=== PATIENT | female | born 1945 | race Caucasian/White ===

== ENCOUNTER → 2016-11-28 | Outpatient (CLI) | payer BC ==
--- NOTE | 2016-12-03 09:13 | MM ---
Reason for exam: screening (asymptomatic). Last mammogram was performed 1 year ago. History: Patient is postmenopausal. Family history of breast cancer in paternal aunt. Benign right mammotome panel of the right breast, January 06, 2012. Cancelled Right Mammotome of the right breast, September 09, 2011. Took hormonal contraceptives for 20 years. Took estrogen for 7 years. Physical Findings: A clinical breast exam by your physician is recommended on an annual basis and results should be correlated with mammographic findings. MG Screening Mammo w CAD Bilateral CC and MLO view(s) were taken. Prior study comparison: December 13, 2015, bilateral MG screening mammo w CAD. October 27, 2014, bilateral MG screening mammo w CAD. There are scattered fibroglandular densities. Previous mammotome biopsy in the right breast. No significant changes when compared with prior studies. ASSESSMENT: Benign, BI-RAD 2 RECOMMENDATION: Routine screening mammogram of both breasts in 1 year.
== END | disposition home or self-care (01) ==
LOC: RADMAMWWP 16:09
PROVIDERS: ATTEND Family Medicine
DX: Z12.31 Encounter for screening mammogram for malignant neoplasm of breast (principal)

== ENCOUNTER 2017-01-19 21:36 | Observation (INO) | payer BC ==
[2017-01-19] MEDS ORDERED: SODIUM CHLORIDE 0.9% 500 ML IV STA (23:05)
--- NOTE | 2017-01-19 23:15 | ED ---
Abdominal Pain HPI - General Chief Complaint: Abdominal Pain Stated Complaint: Abd Pain Time Seen by Provider: 01/19/17 22:33 Source: patient Mode of arrival: ambulatory Limitations: no limitations - History of Present Illness Initial Comments: This patient is a 72-year-old woman who presents to be evaluated for bilateral upper abdominal pain. The pain came on probably just before noon. The patient notes that she had had a hard bowel movement. Over the next few hours she had multiple soft bowel movements then, without seeing blood or dark tarry stool. She states that the symptoms did become moderately severe, and did remind her of about 5 years ago when she had "twisted bowel" and she had to have an abdominal surgery here. The patient has had no fevers or chills, no nausea or vomiting, no change in urination. She has not had any radiation of the pain into her chest, no cough or shortness of breath. MD Complaint: abdominal pain Onset/Timin -: hour(s) Location: LUQ, RUQ Radiation: none Migration to: no migration Severity: moderate Quality: aching Consistency: intermittent Improves With: rest Worsens With: movement Associated Symptoms: diarrhea - Related Data Home Medications Medication Instructions Recorded Confirmed Baclofen [Lioresal] 10 mg PO HS 07/12/14 01/19/17 Losartan Potassium [Cozaar] 50 mg PO BID 07/12/14 01/19/17 Omeprazole [PriLOSEC] 20 mg PO DAILY 07/12/14 01/19/17 Acetaminophen [Tylenol Arthritis] 650 mg PO BID 01/19/17 01/19/17 Calcium Carb/Vitamin D3/Vit K1 1 tab PO DAILY 01/19/17 01/19/17 [Viactiv Soft Chew Tablet] Ezetimibe [Zetia] 10 mg PO HS 01/19/17 01/19/17 Krill Oil 500 mg PO DAILY 01/19/17 01/19/17 Multivitamins, Thera [Multivitamin] 1 tab PO DAILY 01/19/17 01/19/17 Allergies Allergy/AdvReac Type Severity Reaction Status Date / Time hydromorphone HCl Allergy Rash/Hives Verified 01/19/17 22:46 [From Dilaudid] Sulfa (Sulfonamide Allergy Unknown Verified 01/19/17 22:46 Antibiotics) codeine AdvReac Hallucinati Verified 01/19/17 22:46 ons ibuprofen [From Motrin] AdvReac Hallucinati Verified 01/19/17 22:46 ons meperidine HCl [From Demerol] AdvReac Nausea & Verified 01/19/17 22:46 Vomiting & Diarrhea morphine AdvReac Nausea & Verified 01/19/17 22:46 Vomiting & Diarrhea Review of Systems ROS Statement: Those systems with pertinent positive or pertinent negative responses have been documented in the HPI. ROS Other: All systems not noted in ROS Statement are negative. Constitutional: Denies: fever, chills Respiratory: Denies: cough, dyspnea Cardiovascular: Denies: chest pain, palpitations, edema, syncope Gastrointestinal: Reports: abdominal pain, diarrhea. Denies: nausea, vomiting, constipation, melena, hematochezia Genitourinary: Denies: dysuria, hematuria Musculoskeletal: Denies: back pain Skin: Denies: rash Neurological: Denies: headache, weakness, numbness Past Medical History Past Medical History: GERD/Reflux, Hyperlipidemia, Hypertension, Osteoarthritis (OA) Additional Past Medical History / Comment(s): bowel obstruction, arthritis, LUMBAR STENOSIS, MURMUR,TIA, INCONT OF URINE, UTI,HIATAL HERNIA, VERICOSE VEINS History of Any Multi-Drug Resistant Organisms: None Reported Past Surgical History: Cholecystectomy, Hysterectomy, Joint Replacement Additional Past Surgical History / Comment(s): bilateral knee replacement, carpal tunnel, bowel resection, sinus surgery CATARACT SX AND HAS DOUBLE VISON.HAD VARICOSE VEINS. Past Anesthesia/Blood Transfusion Reactions: Motion Sickness Past Psychological History: No Psychological Hx Reported Smoking Status: Former smoker Past Alcohol Use History: Occasional Additional Past Alcohol Use History / Comment(s): STARTED SMOKING AGE 17, SMOKED 1PPD, QUIT 30 YEARS AGO Past Drug Use History: None Reported - Past Family History Father Family Medical History: Diabetes Mellitus Mother Family Medical History: Unable to Obtain Additional Family Medical History / Comment(s): AT EARLY AGE General Exam Limitations: no limitations Head exam: Present: atraumatic, normocephalic Eye exam: Present: normal appearance. Absent: scleral icterus, conjunctival injection ENT exam: Present: normal oropharynx Neck exam: Present: normal inspection Respiratory exam: Present: normal lung sounds bilaterally. Absent: respiratory distress, wheezes, rales, rhonchi, stridor Cardiovascular Exam: Present: regular rate, normal rhythm, normal heart sounds. Absent: systolic murmur, diastolic murmur, rubs, gallop GI/Abdominal exam: Present: soft, tenderness, normal bowel sounds, hernia ( Patient has reduced, nontender, umbilical/incisional hernia.). Absent: distended, guarding, rebound, rigid, organomegaly, mass, bruit, pulsatile mass Extremities exam: Present: normal inspection, normal capillary refill. Absent: pedal edema, calf tenderness Back exam: Present: normal inspection. Absent: CVA tenderness (R), CVA tenderness (L) Neurological exam: Present: alert Skin exam: Present: warm, dry, intact, normal color. Absent: rash Course Vital Signs 01/19/17 21:47 Temperature 97.8 F Pulse Rate 80 Respiratory 16 Rate Blood Pressure 179/76 O2 Sat by Pulse 98 Oximetry Medical Decision Making - Lab Data Result diagrams: 01/19/17 23:13 01/19/17 23:13 Lab Results 01/19/17 01/19/17 01/19/17 Range/Units 23:13 23:13 23:13 WBC 4.7 (3.8-10.6) k/uL RBC 4.40 (3.80-5.40) m/uL Hgb 12.6 (11.4-16.0) gm/dL Hct 39.0 (34.0-46.0) % MCV 88.6 (80.0-100.0) fL MCH 28.6 (25.0-35.0) pg MCHC 32.3 (31.0-37.0) g/dL RDW 14.5 (11.5-15.5) % Plt Count 220 (150-450) k/uL Neutrophils % 52 % Lymphocytes % 37 % Monocytes % 6 % Eosinophils % 2 % Basophils % 1 % Neutrophils # 2.5 (1.3-7.7) k/uL Lymphocytes # 1.7 (1.0-4.8) k/uL Monocytes # 0.3 (0-1.0) k/uL Eosinophils # 0.1 (0-0.7) k/uL Basophils # 0.0 (0-0.2) k/uL Sodium 140 (137-145) mmol/L Potassium 3.8 (3.5-5.1) mmol/L Chloride 100 (98-107) mmol/L Carbon Dioxide 29 (22-30) mmol/L Anion Gap 11 mmol/L BUN 13 (7-17) mg/dL Creatinine 0.65 (0.52-1.04) mg/dL Est GFR (MDRD) Af Amer >60 (>60 ml/min/1.73 sqM) Est GFR (MDRD) Non-Af >60 (>60 ml/min/1.73 sqM) Glucose 83 (74-99) mg/dL Calcium 9.8 (8.4-10.2) mg/dL Total Bilirubin 0.6 (0.2-1.3) mg/dL AST 37 H (14-36) U/L ALT 29 (9-52) U/L Alkaline Phosphatase 90 (38-126) U/L Total Protein 7.4 (6.3-8.2) g/dL Albumin 4.4 (3.5-5.0) g/dL Amylase 66 (30-110) U/L Lipase 98 (23-300) U/L Urine Color Light Yellow Urine Appearance Clear (Clear) Urine pH 6.5 (5.0-8.0) Ur Specific [place] 1.003 (1.001-1.035) Urine Protein Negative (Negative) Urine Glucose (UA) Negative (Negative) Urine Ketones Negative (Negative) Urine Blood Negative (Negative) Urine Nitrate Negative (Negative) Urine Bilirubin Negative (Negative) Urine Urobilinogen <2.0 (<2.0) mg/dL Ur Leukocyte Esterase Negative (Negative) Disposition Clinical Impression: Abdominal pain, Incarcerated hernia Disposition: ADMITTED IP TO THIS HOSP Condition: Fair Instructions: Abdominal Pain (ED)
[2017-01-19 23:34] LABS: Appearance,Urine Clear (Clear); Basophils % (A) 1 %; Bilirubin,Urine Negative (Negative); CH 28.4; CHCM 32.2; Eosinophils # (A) 0.1 k/uL (0-0.7); Eosinophils % (A) 2 %; Glucose,Urine (UA) Negative (Negative); HDW 2.24; HGB 12.6 gm/dL (11.4-16.0); Ketones,Urine Negative (Negative); Leukocyte Esterase,Urine Negative (Negative); Luc # (Auto) 0.13; Luc % (Auto) 3; Lymphocytes # (A) 1.7 k/uL (1.0-4.8); Lymphocytes % (A) 37 %; MCH 28.6 pg (25.0-35.0); MCHC 32.3 g/dL (31.0-37.0); MCV 88.6 fL (80.0-100.0); Monocytes # (A) 0.3 k/uL (0-1.0); Monocytes % (A) 6 %; Neutrophils # (A) 2.5 k/uL (1.3-7.7); Neutrophils % (A) 52 %; Nitrite,Urine Negative (Negative); PH, Urine 6.5 (5.0-8.0); Protein,Urine Negative (Negative); RDW 14.5 % (11.5-15.5); Specific Gravity,Urine 1.003 (1.001-1.035); UA Billing (MACRO vs. MICRO) CHEM; Urobilinogen,Urine <2.0 mg/dL (<2.0); WBC 4.7 k/uL (3.8-10.6); WBC (Perox) 4.91
[2017-01-19 23:44] LABS: ALT 29 U/L (9-52); AST 37 U/L (14-36); Alkaline Phosphatase 90 U/L (38-126); Amylase 66 U/L (30-110); Anion Gap 11 mmol/L; Blood Urea Nitrogen 13 mg/dL (7-17); Calcium 9.8 mg/dL (8.4-10.2); Carbon Dioxide 29 mmol/L (22-30); Chloride 100 mmol/L (98-107); Glucose 83 mg/dL (74-99); Non-African American GFR(MDRD) >60 (>60 ml/min/1.73 sqM); Potassium 3.8 mmol/L (3.5-5.1); Sodium 140 mmol/L (137-145); Total Bilirubin 0.6 mg/dL (0.2-1.3); Total Protein 7.4 g/dL (6.3-8.2)
--- NOTE | 2017-01-19 23:59 | CT ---
EXAMINATION TYPE: CT abdomen pelvis wo con DATE OF EXAM: 01/19/2017 11:50 PM COMPARISON: 06/03/2013 HISTORY: Abdominal pain CT DLP: mGycm Automated exposure control for dose reduction was used. TECHNIQUE: Helical acquisition of images was performed from the lung bases through the pelvis. FINDINGS: Lung bases are clear. Heart is enlarged. There is a hiatal hernia. Liver spleen pancreas appear normal. There are clips from cholecystectomy. There is no adrenal mass. Kidneys have normal size and contour. There is no hydronephrosis. Ureters are not dilated. There is a ventral hernia or umbilical hernia that contains a loop of bowel. I see no sign of a bowel obstructi on however. Fecal pattern is normal. There is no retroperitoneal adenopathy. There is no ascites. Joni dder distends smoothly. There is no pelvic mass. There are multiple sigmoid diverticula. I see no bon y destructive process. There is a first-degree degenerative L4-5 spondylolisthesis. IMPRESSION: LARGE HIATAL HERNIA. THERE IS A MODERATE-SIZED UMBILICAL OR VENTRAL HERNIA THAT IS NEW COMPARED TO OL D EXAM AND IT APPEARS INCARCERATED. THERE IS NO EVIDENCE OF A BOWEL OBSTRUCTION HOWEVER. THERE IS IMP ROVEMENT IN THE DILATED SMALL BOWEL COMPARED TO OLD EXAM THERE IS SOME SIGMOID DIVERTICULOSIS WITHOUT EVIDENCE OF DIVERTICULITIS.
[2017-01-20] MEDS ORDERED: NALOXONE 0.4 MG/ML 1 ML VIAL IV PRN (02:25)
[2017-01-20] MEDS ORDERED: ONDANSETRON 4 MG/2 ML VIAL IVP PRN (02:25)
[2017-01-20] MEDS ORDERED: SODIUM CHLORIDE 0.9% 1,000 ML IV SCH (02:30)
[2017-01-20 03:38] VITALS: RESP 16
[2017-01-20 03:49] VITALS: BMI 37.0
[2017-01-20 07:34] VITALS: BP 138/61; PULSE 71; TEMP 97.8
[2017-01-20] MEDS ORDERED: LOSARTAN 50 MG TAB PO SCH (09:00)
[2017-01-20] MEDS ORDERED: PANTOPRAZOLE 40 MG/10 ML VIAL IV SCH (09:00)
--- NOTE | 2017-01-20 10:07 | P.GSHP ---
History of Present Illness H&P Date: 01/20/17 Chief Complaint: Abdominal pain The patient is a 72-year-old white female who states that the day prior to admission she was experiencing abdominal discomfort. The pain came on approximately noon and became progressively worse. She stated she had had a bowel movement earlier in the day and then after the pain she had multiple soft bowel movements. She is passing flatus now she denies any nausea or vomiting. She does complain of a bowel obstruction a proximally 5 years ago for which she had abdominal surgery. The patient has a known ventral hernia and she states that this was protuberant and is no longer protuberant. She had a CAT scan of her abdomen and pelvis which revealed a ventral hernia as well as a hiatal hernia she additionally did not have evidence of a bowel obstruction. She did have bowel noted in the ventral hernia. Past surgical history: 1. Cholecystectomy 2. Hysterectomy 3. Surgery for bowel obstruction 4. Knee surgery Medical history: 1. GERD reflux 2. Hyperlipidemia 3. Hypertension 4. Osteoarthritis 4. Lumbar stenosis 5. Arthritis 6. Murmur 7. TIA ALLERGIES: Hydromorphone Sulfa Codeine Ibuprofen Meperidine Morphine - Constitutional Constitutional: Reports as per HPI - Cardiovascular Cardiovascular: Reports as per HPI - Respiratory Respiratory: Reports as per HPI - Gastrointestinal Gastrointestinal: Reports as per HPI, Reports abdominal pain - Genitourinary (Female) Genitourinary: Reports as per HPI - Musculoskeletal Musculoskeletal: Reports as per HPI - Allergic/Immunologic Allergic/Immunologic: Reports as per HPI Past Medical History Past Medical History: GERD/Reflux, Hyperlipidemia, Hypertension, Osteoarthritis (OA) Additional Past Medical History / Comment(s): bowel obstruction, arthritis, LUMBAR STENOSIS, MURMUR,TIA, INCONT OF URINE, UTI,HIATAL HERNIA, VERICOSE VEINS History of Any Multi-Drug Resistant Organisms: None Reported Past Surgical History: Cholecystectomy, Hysterectomy, Joint Replacement, Orthopedic Surgery Additional Past Surgical History / Comment(s): bilateral knee replacement, carpal tunnel, bowel resection, sinus surgery CATARACT SX AND HAS DOUBLE VISON.HAD VARICOSE VEINS SX..LEFT TOE SX, RIGHT FOOT SX. Surgery for bowel obstruction Past Anesthesia/Blood Transfusion Reactions: Motion Sickness Past Psychological History: No Psychological Hx Reported Smoking Status: Former smoker Past Alcohol Use History: Occasional Additional Past Alcohol Use History / Comment(s): STARTED SMOKING AGE 17, SMOKED 1PPD, QUIT 30 YEARS AGO Past Drug Use History: None Reported - Past Family History Father Family Medical History: Diabetes Mellitus Mother Family Medical History: Unable to Obtain Additional Family Medical History / Comment(s): AT EARLY AGE Medications and Allergies Home Medications Medication Instructions Recorded Confirmed Type Baclofen [Lioresal] 10 mg PO HS 07/12/14 01/19/17 History Losartan Potassium [Cozaar] 50 mg PO BID 07/12/14 01/19/17 History Omeprazole [PriLOSEC] 20 mg PO DAILY 07/12/14 01/19/17 History Acetaminophen [Tylenol Arthritis] 650 mg PO BID 01/19/17 01/19/17 History Calcium Carb/Vitamin D3/Vit K1 1 tab PO DAILY 01/19/17 01/19/17 History [Viactiv Soft Chew Tablet] Ezetimibe [Zetia] 10 mg PO HS 01/19/17 01/19/17 History Krill Oil 500 mg PO DAILY 01/19/17 01/19/17 History Multivitamins, Thera [Multivitamin] 1 tab PO DAILY 01/19/17 01/19/17 History Allergies Allergy/AdvReac Type Severity Reaction Status Date / Time hydromorphone HCl Allergy Rash/Hives Verified 01/20/17 04:05 [From Dilaudid] Sulfa (Sulfonamide Allergy Unknown Verified 01/20/17 04:05 Antibiotics) codeine AdvReac Hallucinati Verified 01/20/17 04:05 ons ibuprofen [From Motrin] AdvReac Hallucinati Verified 01/20/17 04:05 ons meperidine HCl [From Demerol] AdvReac Nausea & Verified 01/20/17 04:05 Vomiting & Diarrhea morphine AdvReac Nausea & Verified 01/20/17 04:05 Vomiting & Diarrhea Surgical - Exam Vital Signs Temp Pulse Resp BP Pulse Ox 97.8 F 80 16 179/76 98 01/19/17 21:47 01/19/17 21:47 01/19/17 21:47 01/19/17 21:47 01/19/17 21:47 - General well developed, well nourished, no distress, no pain - Eyes normal ocular movement - ENT normal pinna, normal mucosa, no hearing loss - Neck no masses, trachea midline, no lymphadectomy, no venous distension - Respiratory normal expansion, normal respiratory effort, clear to auscultation - Cardiovascular Rhythm: regular Heart Sounds: normal: S1, S2 - Abdomen well healed scars from prior surgery No guarding or rebound easily reducible ventral hernia Abdomen: soft Hernia: incisional, reducible - Integumentary Well-healed scars from prior surgeries no growths, no abnormal pigmentation - Musculoskeletal normal posture - Psychiatric oriented to time, oriented to person, oriented to place, speech is normal Results - Labs 01/19/17 23:13 01/19/17 23:13 - Imaging CT scan - abdomen: report reviewed, image reviewed CT scan - pelvis: report reviewed, image reviewed Assessment and Plan Plan: Impression/plan: 1. 72-year-old white female with abdominal pain which has resolved 2. Reducible ventral hernia 3. GERD/reflux 4. Hyperlipidemia 5. Hypertension 6. Osteoarthritis Plan: 1. Medical management of her medical conditions 2. This time patient does not have an acute surgical abdomen but would recommend ventral hernia repair in the near future. I suspect that she may have had some bowel in the ventral hernia causing some mild obstruction which has since resolved.
--- NOTE | 2017-01-20 10:09 | P.PN ---
Progress Note - Text Please note patient states she has had a colonoscopy within the last 5 years with no problems of concern noted.
--- NOTE | 2017-01-20 12:17 | P.DS ---
Providers Date of admission: 01/20/17 02:25 Expected date of discharge: 01/20/17 Attending physician: Antoinette Maloney Primary care physician: Rodney Joseph [facility] Course: The patient is a 72-year-old white female who states that the day prior to admission she was experiencing abdominal discomfort. The pain came on approximately noon and became progressively worse. She stated she had had a bowel movement earlier in the day and then after the pain she had multiple soft bowel movements. She is passing flatus now she denies any nausea or vomiting. She does complain of a bowel obstruction a proximally 5 years ago for which she had abdominal surgery. The patient has a known ventral hernia and she states that this was protuberant and is no longer protuberant. She had a CAT scan of her abdomen and pelvis which revealed a ventral hernia as well as a hiatal hernia she additionally did not have evidence of a bowel obstruction. She did have bowel noted in the ventral hernia. Patient was seen by Dr. Paul surgeon. Recommendations were medical management. Patient does not have an acute surgical abdomen but would recommend ventral hernia repair to be done in the future. This would be discussed in an outpatient setting this week in the office. Patient tolerated the diet was appropriate to proceed with a discharge to home with follow-up this week in the office with Dr. Paul Impression discharge diagnosis Present on admission abdominal pain resolved Reducible ventral hernia Esophageal reflex Hyperlipidemia Essential hypertension Osteoarthritis Last colonoscopy 5 years prior negative study History of a bowel obstruction with surgery 5 years prior The above dictated assessment and findings were discussed with dr Tayler Milian Impression and the plan of care have been dictated as directed. Emely Guzman nurse practitioner acting as a scribe for dr Paul Patient Condition at Discharge: Fair Plan - Discharge Summary Discharge Medication List Baclofen [Lioresal] 10 mg PO HS 07/12/14 [History] Losartan Potassium [Cozaar] 50 mg PO BID 07/12/14 [History] Omeprazole [PriLOSEC] 20 mg PO DAILY 07/12/14 [History] Acetaminophen [Tylenol Arthritis] 650 mg PO BID 01/19/17 [History] Calcium Carb/Vitamin D3/Vit K1 [Viactiv Soft Chew] 1 tab PO DAILY 01/19/17 [ History] Ezetimibe [Zetia] 10 mg PO HS 01/19/17 [History] Krill Oil 500 mg PO DAILY 01/19/17 [History] Multivitamins, Thera [Multivitamin] 1 tab PO DAILY 01/19/17 [History] Follow up Appointment(s)/Referral(s): Rodney Joseph MD [Primary Care Provider] - 01/29/17 11:20 am Antoinette Maloney MD [STAFF PHYSICIAN] - 01/23/17 11:15 am Patient Instructions/Handouts: Ventral Hernia (GEN) Discharge Disposition: HOME SELF-CARE
== END 2017-01-20 13:47 | disposition home or self-care (01) ==
LOC: EC 21:36 → 3SUR 01-20 02:25
PROVIDERS: ADMIT Surgery; ATTEND Surgery
DX: R10.11 Right upper quadrant pain (principal); R10.12 Left upper quadrant pain; K43.9 Ventral hernia without obstruction or gangrene; K44.9 Diaphragmatic hernia without obstruction or gangrene; K21.9 Gastro-esophageal reflux disease without esophagitis; E78.5 Hyperlipidemia, unspecified; I10 Essential (primary) hypertension; M19.90 Unspecified osteoarthritis, unspecified site; Z79.899 Other long term (current) drug therapy; Z88.2 Allergy status to sulfonamides; Z88.6 Allergy status to analgesic agent; Z88.5 Allergy status to narcotic agent; Z87.891 Personal history of nicotine dependence; Z90.49 Acquired absence of other specified parts of digestive tract; Z86.73 Personal history of transient ischemic attack (TIA), and cerebral infarction without residual deficits
CPT/HCPCS: 96374; 96360; 96361; 99285; 36415; 80053; 82150; 83690; 85025; 81003; 74176; G0378; C9113

== ENCOUNTER 2017-11-13 11:11 | Day surgery (SDC) | payer BC ==
[2017-11-10 09:07] VITALS: BMI 37.7
[~2017-11-13 11:11] MED LIST: MORPHINE SULFATE 5 MG/ML SYRINGE IV PRN; ONDANSETRON 4 MG/2 ML VIAL IVP PRN; ceFAZolin IN SWFI 2 GM/20 ML SYRINGE IVP ONE
[2017-11-13] MEDS: LACTATED RINGERS 1,000 ML IV SCH ×2 (11:57→17:10)
[2017-11-13] MEDS ORDERED: LIDOCAINE 1% 20 ML VIAL (10MG/ML) FOR IV START INTRADERMA ONE (11:57)
[2017-11-13] MEDS ORDERED: MIDAZOLAM 2 MG/2 ML VIAL IVP ONE (12:22)
[2017-11-13] MEDS ORDERED: SUCCINYLCHOLINE CHLORIDE 100 MG/5 ML SYR IV ONE (12:37)
[2017-11-13] MEDS ORDERED: ePHEDrine SULFATE/0.9% NACL/PF 50 MG/5 ML SYRINGE IV ONE (12:37)
[2017-11-13] MEDS ORDERED: LIDOCAINE 1% INJ 10MG/ML (20 ML MDV) ONE (12:37)
[2017-11-13] MEDS ORDERED: PROPOFOL 10 MG/ML 20 ML VIAL IV ONE (12:37)
[2017-11-13] MEDS ORDERED: LABETALOL 5 MG/ML VIAL MDV ONE (12:37)
[2017-11-13] MEDS ORDERED: ROCURONIUM BROMIDE 10 MG/ML 10 ML VIAL IV ONE (12:37)
[2017-11-13] MEDS ORDERED: fentaNYL (PF) 50 MCG/ML 2 ML AMP ONE (12:37)
--- NOTE | 2017-11-13 14:59 | XR ---
EXAMINATION TYPE: XR foot limited LT, FL guidance operating room DATE OF EXAM: 11/13/2017 CLINICAL HISTORY: Left foot open reduction internal fixation. TECHNIQUE: Fluoroscopy. COMPARISON: None. FINDINGS/IMPRESSION: Fluoroscopic guidance was provided during procedure performed by Dr. Willis. A total of 11 seconds of fluoroscopic time was utilized during the procedure and 3 spot images was a cquired during open reduction internal fixation of the first through third digits of the left foot.
[2017-11-13 15:43] VITALS: TEMP 97.7
[2017-11-13 15:58] VITALS: RESP 18
--- NOTE | 2017-11-13 16:29 | P.ONQ ---
Anesthesiology Proc Note - PNB - Peripheral Nerve Block Performed Left Popliteal Indication: Acute Post-Operative Pain, Requested by physician (Dr Radford) Sedation Type: Sedate with meaningful contact maintained Preparation: Sterile Prep Position: Supine Catheter: None Needle Types: Other (see comment) (Christian) Needle Size: 50mm (2") Needle Gauge: 20 Technique: Ultrasound Injectate: 0.5% Ropivacaine (see comment for volume) (20cc) Blood Aspirated: No Pain Paresthesia on Injection Noted: No Resistance on Injection: Normal Events: Uneventful and Well Tolerated
--- NOTE | 2017-11-13 17:25 | P.OP ---
Date of Procedure: 11/13/17 Preoperative Diagnosis: 1. Failed left first MTP implant 2. Left rigid second and third hammertoes 3. Metatarsalgia, left foot 4. Gastroc equinus contracture Postoperative Diagnosis: Same Procedure(s) Performed: 1. Left first MTP distraction arthrodesis with iliac crest allograft 2. Correction of left second hammertoe with PIP resection arthroplasty, flexor to extensor tendon transfer, extensor tendon lengthening, and MTP capsulotomy 3. Correction of left third hammertoe with PIP resection arthroplasty, flexor to extensor tendon transfer, extensor tendon lengthening and MTP capsulotomy 4. Left gastrocnemius recession 5. Removal of deep implant, left foot 6. Application of short leg splint by physician Anesthesia: [facility], [facility] Surgeon: Shahbaz Willis Transit Survey Worker #1: Robert Roman Estimated Blood Loss (ml): 25 IV fluids (ml): 900 Pathology: none sent Condition: stable Disposition: PACU Indications for Procedure: The patient is a very pleasant 72-year-old female who previously had underwent a first MTP implant arthroplasty on the left foot many years ago. The patient did well initially but has developed increasing pain and deformity over the last several years. The patient also developed painful hammertoes of the second and third toes. She was initially treated nonsurgically with orthotics, extra-depth shoes, and activity modifications. She developed increasing pain and requested surgery. My recommendation was to remove the deep Klein implant from her first MTP joint and then perform a distraction arthrodesis with iliac crest allograft, and correct the second and third hammertoes with PIP resection arthroplasties, extensor tendon lengthening, MTP capsulotomy, and flexor to extensor tendon transfers. We also discussed performing a gastroc recession to offload her forefoot. The patient agreed to this plan and requested to go forward with surgery. Prior to signing consent reviewed the potential risks and complications of surgery including but not limited to risk of anesthesia, risk of superficial infection, risk of deep infection, risk of delayed wound healing, risk of wound necrosis, risk of damage to local blood vessels or nerves, risk of nonunion of the fusion site, risk of malunion of the fusion site, risk of hardware failure, risk of worsening deformity, risk of recurrent deformity, risk of vascular embarrassment to the toe requiring pin removal or possibly amputation, worsening pain, chronic pain, chronic swelling, difficulty ambulating following surgery, pin site infection, damage the sural nerve, decreased calf circumference, generalized to satisfaction with surgery, DVT, PE and possibly loss of life or limb. The patient voiced her understanding that these are the most common complications but other less common complications are possible. She provided her verbal and written consent to go forward with surgery. Description of Procedure: The patient was identified in preoperative holding and the correct left foot was marked with my initials. I reviewed the consent form with the patient and her son and all of their questions were answered. A popliteal and saphenous nerve block was placed by anesthesia. The patient was then brought back to the operating room where a general anesthetic and preoperative antibiotics were administered. She was positioned on the OR table and all bony prominences were well-padded. A tourniquet was applied to the proximal aspect of the left thigh. A bump was placed under her left buttock internally rotating the leg to neutral. The right leg was secured to the table with foam and tape. The patient's left leg was then prepped and draped in standard sterile fashion. Prior to starting surgery timeout was performed identifying the correct patient , operative extremity, and procedure. The patient's leg was then elevated, exsanguinated with an Esmarch bandage and the tourniquet was inflated to 250 mmHg. I began by performing a gastrocnemius recession. The leg was elevated on a padded Savage stand a longitudinal incision was marked out 1 thumb breadth posterior to the tibia at the distal medial muscle belly of the gastrocnemius. Skin incision was made over this marking with a 15 blade scalpel and dissection was carried down carefully to the subcutaneous tissue with tenotomy scissors. The superficial fascia was identified and incised longitudinally in line with the skin incision. I bluntly developed the interval between the gastrocnemius aponeurosis and superficial fascia. The sural nerve was found to be adherent to the superficial fascia. Modified right angle retractors were placed isolating the gastrocnemius aponeurosis. A long handled 15 blade knife was then passed lateral to medial releasing the gastrocnemius aponeurosis in its entirety. Following release there was an increase in dorsiflexion of the ankle with the knee extended. The wound was then copiously irrigated. The deep subcu was reapproximated with 2-0 Vicryl and the skin was closed with 3-0 nylon horizontal mattress stitches. Attention was then turned to the foot. The healed incision over the first MTP joint was marked out with a skin marker. Skin incision was made with a 15 blade scalpel. I dissected carefully down to the EHL tendon sheath. The EHL tendon sheath was incised and the EHL tendon retracted laterally. The capsule over the first MTP joint was circumferentially exposed. There was abundant scar tissue but no gross purulence or signs of infection. Silastic implant was identified and removed. The metal base plates in the proximal phalanx and metatarsal were also removed. I then used a series of curettes and pituitary Ronjuers to remove all scar tissue from the bone. Once the bone was fully debrided the wound was copiously irrigated. The bone around the margins of the prior implant were contoured. The tip of the toe was gently distracted and the gap measured 18 mm. Due to the size of the gap and concern for transfer metatarsalgia I elected to perform a distraction arthrodesis of the first MTP joint. Both the first metatarsal and proximal phalanx had concave surfaces. An iliac crest allograft was then dispensed. The graft was cut with a saw to the appropriate depth. A K wire was then placed down the long access of the graft. Using a 16 mm concave reamer I reamed both the proximal and distal aspect of the graft into a convex shape to facilitate placement in the gap of the first MTP joint. The defects in the first metatarsal and proximal phalanx were packed with a mixture of crushed cancellus allograft and augment. The allograft bone was then soaked in the remaining augment. The graft was contoured with the concave reamers until it fit within the gap of the first MTP joint. The toe was then positioned and a K wire was driven down the tip of the big toe across the proximal phalanx and graft and into the medial aspect of the first metatarsal. Clinically the toe appeared to be in slight valgus but was not impinging on the second toe. The knee was bent and the foot was placed on a flat plate. The tip of the toe was just off the flat plate but appeared to be in neutral rotation and appropriate amounts of dorsiflexion and valgus. I then placed a precontoured revision first MTP plate over the proximal phalanx, graft, and first metatarsal. The plate was contoured until it fit onto bone area I then placed a 2.7 mm nonlocking screw in the most distal hole of the plate into the proximal phalanx. I then placed a nonlocking 3.5 mm screw in the oblong slot of the most proximal hole. The screw was placed in the proximal aspect of the oblong hole to generate compression across the fusion site. The position of the plate and the fusion were then assessed with fluoroscopy. I then proceeded to place a locking 2.7 meter screw in the most distal hole into the proximal phalanx. I then placed a second 3.5 mm nonlocking screw in the mid metatarsal followed by 2 locking screws. I then packed the remaining crushed cancellus allograft and augment mixture under the plate and around the allograft and first MTP joint. The longitudinal K wire was removed. Attention was then turned to the second toe. A longitudinal incision was made over the dorsal aspect of the second toe. The extensor tendon was identified and a Z-lengthening was performed. The second MTP joint was then incised to help facilitate reduction. The capsule of the PIP joint was cut in the distal proximal phalanx was cut at the metaphyseal flare. The floor of the PIP joint was incised and the short flexor tendons were sharply released. The long flexor tendon was cut distally and then split along its median raphae. Both the medial and lateral limb were passed subperiosteally over the proximal phalanx. A double-ended 0.0625 K wire was then passed antegrade from the PIP joint out the tip of the toe. The toe was then reduced and the K wire was driven across the proximal phalanx into the first metatarsal head. The flexor tendon was then repaired using 3-0 FiberWire over the proximal phalanx. The PIP joint was repaired with 3-0 FiberWire. The extensor tendon was repaired with 3-0 FiberWire. Attention was then turned to the third toe. A longitudinal incision was made over the dorsal aspect of the third toe. The extensor tendon was identified and a Z-lengthening was performed. The third MTP joint was then incised to help facilitate reduction. The capsule of the PIP joint was cut in the distal proximal phalanx was cut at the metaphyseal flare. The floor of the PIP joint was incised and the short flexor tendons were sharply released. The long flexor tendon was cut distally and then split along its median raphae. Both the medial and lateral limb were passed subperiosteally over the proximal phalanx. A double-ended 0.0625 K wire was then passed antegrade from the PIP joint out the tip of the toe. The toe was then reduced and the K wire was driven across the proximal phalanx into the first metatarsal head. The flexor tendon was then repaired using 3-0 FiberWire over the proximal phalanx. The PIP joint was repaired with 3-0 FiberWire. The extensor tendon was repaired with 3-0 FiberWire. At this point final fluoroscopy shots were taken. I was happy with the position of the plate, screws, and graft in the first ray. The second and third toes appeared to be reduced. The K wire in the second toe just barely grasped the second metatarsal head but appeared to be within bone and the toe felt stable. Remaining graft was again packed around the first MTP joint. The capsule and periosteum were closed over the joint and plate with a running 2-0 Vicryl stitch. The deep subcu was reapproximated using 2-0 Vicryl and the skin was closed with 3-0 nylon horizontal mattress stitches. The deep subcu was closed with interrupted 2-0 Vicryl over the second and third toe incisions. The skin incision was closed with 3-0 nylon horizontal mattress stitches. The K wires were then bent and cut. Protective covering awls were then placed over the tip of the K wires. I verified that all instrument, sponge, and sharp counts were correct. The tourniquet was let down for total tourniquet time of 104 minutes. The tips of the first, second, and third toes all pinked up and had brisk capillary refill. A sterile dressing consisting of Betadine soaked Adaptic, 4 x 4, and web roll was applied. The drapes were taken down and a well -padded bulky Valdez splint was placed with the ankle in neutral. The patient was then awoken from her anesthetic, transferred from the OR table to a gurney and brought to PACU having tolerated the procedure well. Robert Roman PA-C was required is a skilled cafe assistant for patient positioning, retraction, preparation of graft, placement of hardware, wound closure, and application of splint. Plan: The patient can discharge home as an outpatient. She is to be strictly nonweightbearing on her left leg. She was instructed on pin site care including twice daily cleansing of the pin with a Q-tip soaked in peroxide. She 'll follow-up in 2 weeks for splint removal and x-rays of the left foot.
[2017-11-13 17:27] VITALS: BP 122/62; PULSE 77
== END 2017-11-13 18:02 | disposition home or self-care (01) ==
LOC: OR 11:11
PROVIDERS: ATTEND Orthopaedic Surgery
DX: T84.84XA Pain due to internal orthopedic prosthetic devices, implants and grafts, initial encounter (principal); T84.89XA Other specified complication of internal orthopedic prosthetic devices, implants and grafts, initial encounter; M20.12 Hallux valgus (acquired), left foot; M20.42 Other hammer toe(s) (acquired), left foot; M62.462 Contracture of muscle, left lower leg; M19.072 Primary osteoarthritis, left ankle and foot; I10 Essential (primary) hypertension; E78.00 Pure hypercholesterolemia, unspecified; H53.8 Other visual disturbances; I34.1 Nonrheumatic mitral (valve) prolapse; K21.9 Gastro-esophageal reflux disease without esophagitis; Z79.899 Other long term (current) drug therapy; Z88.2 Allergy status to sulfonamides; Z88.8 Allergy status to other drugs, medicaments and biological substances; Z91.013 Allergy to seafood; Z88.5 Allergy status to narcotic agent; Z91.048 Other nonmedicinal substance allergy status; Z87.891 Personal history of nicotine dependence
CPT/HCPCS: 73620; 27687; 20680; 28750; 28285 ×2; C1713 ×2; C1762; J2250; J0690; J2001; J3010; J0330; J2704

== ENCOUNTER → 2018-02-04 | Outpatient (CLI) | payer MEDICARE, BC ==
--- NOTE | 2018-02-05 13:36 | MM ---
Reason for exam: screening (asymptomatic). Last mammogram was performed 1 year and 2 months ago. History: Patient is postmenopausal. Family history of breast cancer in paternal aunt. Benign right mammotome panel of the right breast, January 06, 2012. Cancelled Right Mammotome of the right breast, September 09, 2011. Took hormonal contraceptives for 20 years. Took estrogen for 7 years. Physical Findings: A clinical breast exam by your physician is recommended on an annual basis and results should be correlated with mammographic findings. MG 3D Screening Mammo W/Cad Bilateral CC and MLO view(s) were taken. Prior study comparison: November 28, 2016, bilateral MG screening mammo w CAD. December 13, 2015, bilateral MG screening mammo w CAD. There are scattered fibroglandular densities. There is chronic nodularity bilaterally. No significant changes when compared with prior studies. ASSESSMENT: Benign, BI-RAD 2 RECOMMENDATION: Routine screening mammogram of both breasts in 1 year.
== END ==
LOC: RADMAMWWP 13:31
PROVIDERS: ATTEND Family Medicine
DX: Z12.31 Encounter for screening mammogram for malignant neoplasm of breast (principal)
CPT/HCPCS: 77063; 77067

== ENCOUNTER → 2018-04-21 | Outpatient (CLI) | payer MEDICARE, BC ==
[2018-04-21 14:02] LABS: HCT 38.7 % (34.0-46.0); HGB 12.5 gm/dL (11.4-16.0); MCH 28.8 pg (25.0-35.0); MCHC 32.3 g/dL (31.0-37.0); Mean Platelet Volume 7.3; Platelet Count 273 k/uL (150-450); RBC 4.35 m/uL (3.80-5.40); RDW 13.8 % (11.5-15.5); WBC 5.3 k/uL (3.8-10.6)
[2018-04-21 14:14] LABS: Anion Gap 11 mmol/L; Blood Urea Nitrogen 25 mg/dL (7-17); Carbon Dioxide 29 mmol/L (22-30); Chloride 100 mmol/L (98-107); Potassium 4.2 mmol/L (3.5-5.1); Sodium 140 mmol/L (137-145)
== END | disposition home or self-care (01) ==
LOC: LABPAT 13:43
PROVIDERS: ATTEND Internal Medicine Interventional Cardiology
DX: Z01.812 Encounter for preprocedural laboratory examination (principal); I25.10 Atherosclerotic heart disease of native coronary artery without angina pectoris
CPT/HCPCS: 36415; 80051; 82565; 84520; 85027

== ENCOUNTER → 2018-04-30 | Day surgery (SDC) | payer MEDICARE, BC ==
[2018-04-26 14:34] VITALS: BMI 26.4
[~2018-04-30] MED LIST changes: +ALPRAZolam 0.5 MG TAB PO PRN; +ASPIRIN 325 MG TAB PO ONE; +HEPARIN SODIUM 1,000 UN/ML (10ML VL) IV ONE; +HEPARIN SODIUM 1,000 UN/ML (10ML VL) ONE; +IOHEXOL 350 MG/ML 125ML BOTTLE INJ ONE; +IOPAMIDOL-370 125ML BTL INJ ONE; +LIDOCAINE 2% INJ 20 MG/ML SQ ONE; +MIDAZOLAM 2 MG/2 ML VIAL IV ONE; +MIDAZOLAM 2 MG/2 ML VIAL ONE; -MORPHINE SULFATE 5 MG/ML SYRINGE IV PRN; -ONDANSETRON 4 MG/2 ML VIAL IVP PRN; +RX INFO: IV CONTRAST WAS GIVEN 1 EACH MISC MISCELLANE PRN; +SODIUM CHLORIDE 0.9% 1,000 ML IV SCH; +SODIUM CHLORIDE 0.9% 1,000 ML in EMPTY BAG 1 BAG IV ONE; +VERAPAMIL 2.5 MG/ML 2 ML AMP ONE; -ceFAZolin IN SWFI 2 GM/20 ML SYRINGE IVP ONE
[2018-04-30 07:04] VITALS: RESP 18
[2018-04-30] MEDS: VERAPAMIL SYRINGE (5 MG/10 ML) INTRAARTER ONE ×2 (07:39→07:52)
[2018-04-30 09:00] VITALS: TEMP 98
--- NOTE | 2018-04-30 09:13 | LTR ---
DATE OF SERVICE: 04/30/2018 RE: Angie Branch Dear Dr. Joseph; Ms. Angie Branch was experiencing intermittent episodes of chest discomfort concerning for angina. A heart catheterization was advised. It did reveal normal coronary angiogram. I want to thank you for allowing me to participate in her care and please do not hesitate to call if you have any question or concern. Sincerely, MD JOSÉ MIGUEL [place] / XINN: [id number] /
--- NOTE | 2018-04-30 09:19 | CC ---
CARDIAC CATHETERIZATION REPORT DATE OF SERVICE: 04/30/2018 PERFORMING PHYSICIAN: Veto Dougherty MD, data center solutions architect. PROCEDURE PERFORMED: 1. Selective right and left coronary angiogram. 2. Left heart catheterization. INDICATION: This is a pleasant 73-year-old female patient with known hypertension and dyslipidemia, and she is intolerant to statin, was experiencing intermittent episodes of chest discomfort concerning for angina. Heart catheterization was advised to rule out any severe underlying coronary artery disease. APPROACH: Right radial artery. COMPLICATION: None. LEVEL OF SEDATION: Moderate with sedation length of 16 minutes. PROCEDURE DESCRIPTION: After obtaining an informed consent, the patient was brought to the cardiac specialist employee labor relations. The right radial artery was cannulated using micropuncture technique, the micropuncture wire passed easily then I placed a 6-Turkmen sheath in the right radial artery. After that I gave the patient 2 mg of verapamil IA and 8000 units of heparin IV. Selective right and left coronary angiogram was performed using JR4 and JL3.5 catheters. Left heart catheterization was performed using the JR4 catheter which flipped into the LV then I did pullback across aortic valve. The procedure was completed without any complication. SELECTIVE CORONARY ANGIOGRAM: 1. The right coronary artery is a large caliber vessel and it is a dominant vessel. The RCA is angiographically normal. It distally bifurcates into PDA and PLV branches, both are angiographically normal. 2. The left main is angiographically normal. It bifurcates into the left circumflex and left anterior descending artery. 3. The left circumflex is a medium caliber vessel and it is a nondominant vessel. The left circumflex is angiographically normal. It gives rise into a large OM branch which appeared to be angiographically normal. The circumflex continued after that as a small to medium caliber vessel in the AV groove. 4. The LAD: The LAD is angiographically normal. The LAD is a large caliber vessel as well. It does reach the apex and wrap around the apex. It gives rise into 2 diagonal branches in the midportion and both are small to medium caliber vessel and seems to be angiographically normal. HEMODYNAMICS: The left ventricular end-diastolic pressure appeared to be in the range of 12 to 14 mmHg and no gradient was identified across the aortic valve. CONCLUSION: 1. Normal coronary angiogram. 2. Normal left ventricular end-diastolic pressure. POSTPROCEDURE MANAGEMENT: 1. Maximize medical treatment. 2. Consider oral nitrate for possible coronary vasospasm as an etiology for the chest discomfort. MMODL / IJN: [id number] /
[2018-04-30 13:44] VITALS: BP 130/57; PULSE 72
== END | disposition home or self-care (01) ==
LOC: CATHCVL 06:31
PROVIDERS: ATTEND Internal Medicine Interventional Cardiology
DX: I20.0 Unstable angina (principal); I10 Essential (primary) hypertension; E78.00 Pure hypercholesterolemia, unspecified; I34.1 Nonrheumatic mitral (valve) prolapse; E78.5 Hyperlipidemia, unspecified; Z79.899 Other long term (current) drug therapy; Z88.8 Allergy status to other drugs, medicaments and biological substances; Z88.5 Allergy status to narcotic agent; Z88.0 Allergy status to penicillin; Z91.013 Allergy to seafood; Z88.2 Allergy status to sulfonamides; Z91.048 Other nonmedicinal substance allergy status; Z87.891 Personal history of nicotine dependence
CPT/HCPCS: 93458; C1769; J2001; J2250; J1644; Q9967

== ENCOUNTER → 2019-02-28 | Outpatient (CLI) | payer MEDICARE, BC ==
--- NOTE | 2019-03-02 08:11 | MM ---
Reason for exam: screening (asymptomatic). Last mammogram was performed 1 year and 1 month ago. History: Patient is postmenopausal. Family history of breast cancer in paternal aunt at age 50. Benign right mammotome panel of the right breast, January 06, 2012. Cancelled Right Mammotome of the right breast, September 09, 2011. Took hormonal contraceptives for 20 years. Took estrogen for 7 years. Physical Findings: A clinical breast exam by your physician is recommended on an annual basis and results should be correlated with mammographic findings. MG 3D Screening Mammo W/Cad Bilateral CC and MLO view(s) were taken. Prior study comparison: February 04, 2018, bilateral MG 3d screening mammo w/cad. November 28, 2016, bilateral MG screening mammo w CAD. Finding: There are faint, fine, segmental calcifications in the lower outer quadrant, posterior position of the right breast present previously. Previous mammotome biopsy in the right breast. No significant changes in finding since February 04, 2018 and November 28, 2016. ASSESSMENT: Benign, BI-RAD 2 RECOMMENDATION: Routine screening mammogram of both breasts in 1 year.
== END | disposition home or self-care (01) ==
LOC: RADMAMWWP 13:51
PROVIDERS: ATTEND Family Medicine
DX: Z12.31 Encounter for screening mammogram for malignant neoplasm of breast (principal)
CPT/HCPCS: 77063; 77067

== ENCOUNTER 2019-03-31 14:18 | Inpatient (IN) | payer MEDICARE, BC ==
--- NOTE | 2019-03-31 14:31 | ED ---
General Adult HPI - General Chief complaint: Abdominal Pain Stated complaint: abdominal pain/bowel problems Source: patient, RN notes reviewed Mode of arrival: ambulatory Limitations: no limitations - History of Present Illness Initial comments: 74-year-old female with a past medical history of bowel obstruction, TIA, urinary incontinence, hyperlipidemia, hypertension presents to the emergency department for a chief complaint of lower abdominal pain. Patient states this has been ongoing for several weeks but did localize to the left lower quadrant earlier today. Patient states she has had loose stools multiple times per day for the past 2 weeks as well. Denies any fevers or chills. States that she saw someone at the clinic today but they wanted her to be evaluated in the emergency department due to her history of bowel obstruction. Patient states this does not feel like a previous bowel obstruction but she is still very concerned.Patient has no other complaints at this time including shortness of breath, chest pain, nausea or vomiting, headache, or visual changes. - Related Data Home Medications Medication Instructions Recorded Confirmed Losartan Potassium [Cozaar] 50 mg PO BID 07/12/14 03/31/19 Omeprazole [PriLOSEC] 20 mg PO DAILY 07/12/14 03/31/19 Acetaminophen [Tylenol Arthritis] 650 mg PO BID PRN 01/19/17 03/31/19 Calcium Carb/Vitamin D3/Vit K1 1 tab PO DAILY 01/19/17 03/31/19 [Viactiv Soft Chew] Krill Oil 500 mg PO DAILY 01/19/17 03/31/19 Multivitamins, Thera [Multivitamin 1 tab PO DAILY 01/19/17 03/31/19 (formulary)] Loratadine [Claritin] 10 mg PO DAILY 11/10/17 03/31/19 Ezetimibe 10 mg PO DAILY 04/26/18 03/31/19 Magnesium 200 mg PO DAILY 04/26/18 03/31/19 Turmeric Root Extract [Turmeric] 500 mg PO DAILY 04/26/18 03/31/19 Cholecalciferol [Vitamin D3 (25 1,000 unit PO DAILY 03/31/19 03/31/19 Mcg = 1000 Iu)] Metoprolol Succinate (ER) [Toprol 25 mg PO DAILY 03/31/19 03/31/19 Xl] Allergies Allergy/AdvReac Type Severity Reaction Status Date / Time hydromorphone HCl Allergy Rash/Hives, Verified 03/31/19 14:47 [From Dilaudid] nausea/vomi ting Sulfa (Sulfonamide Allergy vaginal Verified 03/31/19 14:47 Antibiotics) sores codeine AdvReac Hallucinati Verified 03/31/19 14:47 ons ibuprofen [From Motrin] AdvReac Hallucinati Verified 03/31/19 14:47 ons meperidine HCl [From Demerol] AdvReac Nausea & Verified 03/31/19 14:47 Vomiting morphine AdvReac Nausea & Verified 03/31/19 14:47 Vomiting,hives tramadol AdvReac nausea,dizz Verified 03/31/19 14:47 y blood thinner that was given AdvReac coughing Uncoded 04/30/18 06:48 in ER up blood clots & vaginal bleeding cholesterol med AdvReac muscle Uncoded 04/30/18 06:48 cramps pain meds AdvReac nausea,dizz Uncoded 04/30/18 06:48 y Review of Systems ROS Statement: Those systems with pertinent positive or pertinent negative responses have been documented in the HPI. ROS Other: All systems not noted in ROS Statement are negative. Past Medical History Past Medical History: Eye Disorder, GERD/Reflux, Hyperlipidemia, Hypertension, Osteoarthritis (OA) Additional Past Medical History / Comment(s): steroids Sep 2017,double vision,bowel obstruction, arthritis, LUMBAR STENOSIS, MURMUR,TIA, INCONT OF URINE, UTI,HIATAL HERNIA, VERICOSE VEINS History of Any Multi-Drug Resistant Organisms: None Reported Past Surgical History: Cholecystectomy, Hysterectomy, Joint Replacement, Orthopedic Surgery Additional Past Surgical History / Comment(s): bilateral knee replacement, car pal tunnel, bowel resection, sinus surgery CATARACT SX AND HAS DOUBLE VISON.HAD VARICOSE VEINS SX..LEFT TOE SX, RIGHT FOOT SX,Rt shoulder Past Anesthesia/Blood Transfusion Reactions: Motion Sickness Past Psychological History: No Psychological Hx Reported Smoking Status: Former smoker Past Alcohol Use History: None Reported Past Drug Use History: None Reported - Past Family History Father Family Medical History: Diabetes Mellitus Mother Family Medical History: No Reported History Additional Family Medical History / Comment(s): AT EARLY AGE General Exam Limitations: no limitations General appearance: alert, in no apparent distress Head exam: Present: atraumatic, normocephalic, normal inspection Eye exam: Present: normal appearance, PERRL, EOMI. Absent: scleral icterus, conjunctival injection, periorbital swelling ENT exam: Present: normal exam, mucous membranes moist Neck exam: Present: normal inspection, full ROM. Absent: tenderness, meningismus, lymphadenopathy Respiratory exam: Present: normal lung sounds bilaterally. Absent: respiratory distress, wheezes, rales, rhonchi, stridor Cardiovascular Exam: Present: regular rate, normal rhythm, normal heart sounds. Absent: systolic murmur, diastolic murmur, rubs, gallop, clicks GI/Abdominal exam: Present: soft, tenderness (tenderness to the LLQ), normal bowel sounds. Absent: distended, guarding, rebound, rigid Neurological exam: Present: alert, oriented X3, CN II-XII intact Psychiatric exam: Present: normal affect, normal mood Course Vital Signs 03/31/19 14:24 Temperature 99.3 F Pulse Rate 101 H Respiratory 18 Rate Blood Pressure 158/75 O2 Sat by Pulse 99 Oximetry Medical Decision Making - Medical Decision Making 74-year-old female presents to the emergency department for a chief complaint of left lower quadrant pain. Patient has had generalized abdominal pain for the past few weeks as well as left lower quadrant pain for the past day. Patient does have tenderness noted of the left lower quadrant, no rebound tenderness. CBC CMP are unremarkable. Lactic acid 0.7. CT abdomen and pelvis with contrast shows evidence of sigmoid diverticulitis with extensive pericolic fluid and instead signing. Fluid and air bubbles consistent with abscess. Blood culture pending, patient given IV Flagyl and Cipro. Patient will be admitted for further management and GI consult. - Lab Data Result diagrams: 03/31/19 14:50 03/31/19 14:50 Lab Results 03/31/19 03/31/19 03/31/19 Range/Units 14:41 14:50 14:50 WBC 9.4 (3.8-10.6) k/uL RBC 4.50 (3.80-5.40) m/uL Hgb 12.8 (11.4-16.0) gm/dL Hct 40.0 (34.0-46.0) % MCV 88.8 (80.0-100.0) fL MCH 28.4 (25.0-35.0) pg MCHC 32.0 (31.0-37.0) g/dL RDW 13.0 (11.5-15.5) % Plt Count 226 (150-450) k/uL Neutrophils % 77 % Lymphocytes % 14 % Monocytes % 5 % Eosinophils % 2 % Basophils % 0 % Neutrophils # 7.2 (1.3-7.7) k/uL Lymphocytes # 1.3 (1.0-4.8) k/uL Monocytes # 0.5 (0-1.0) k/uL Eosinophils # 0.2 (0-0.7) k/uL Basophils # 0.0 (0-0.2) k/uL Sodium 140 (137-145) mmol/L Potassium 4.1 (3.5-5.1) mmol/L Chloride 104 (98-107) mmol/L Carbon Dioxide 29 (22-30) mmol/L Anion Gap 7 mmol/L BUN 17 (7-17) mg/dL Creatinine 0.54 (0.52-1.04) mg/dL Est GFR (CKD-EPI)AfAm >90 (>60 ml/min/1.73 sqM) Est GFR (CKD-EPI)NonAf >90 (>60 ml/min/1.73 sqM) Glucose 94 (74-99) mg/dL Plasma Lactic Acid Justyn (0.7-2.0) mmol/L Calcium 9.2 (8.4-10.2) mg/dL Total Bilirubin 0.6 (0.2-1.3) mg/dL AST 28 (14-36) U/L ALT 22 (9-52) U/L Alkaline Phosphatase 93 (38-126) U/L Total Protein 7.1 (6.3-8.2) g/dL Albumin 4.3 (3.5-5.0) g/dL Amylase 58 (30-110) U/L Lipase 68 (23-300) U/L Urine Color Yellow Urine Appearance Clear (Clear) Urine pH 5.5 (5.0-8.0) Ur Specific [place] 1.021 (1.001-1.035) Urine Protein Negative (Negative) Urine Glucose (UA) Negative (Negative) Urine Ketones Trace H (Negative) Urine Blood Negative (Negative) Urine Nitrite Negative (Negative) Urine Bilirubin Negative (Negative) Urine Urobilinogen <2.0 (<2.0) mg/dL Ur Leukocyte Esterase Negative (Negative) 03/31/19 Range/Units 14:50 WBC (3.8-10.6) k/uL RBC (3.80-5.40) m/uL Hgb (11.4-16.0) gm/dL Hct (34.0-46.0) % MCV (80.0-100.0) fL MCH (25.0-35.0) pg MCHC (31.0-37.0) g/dL RDW (11.5-15.5) % Plt Count (150-450) k/uL Neutrophils % % Lymphocytes % % Monocytes % % Eosinophils % % Basophils % % Neutrophils # (1.3-7.7) k/uL Lymphocytes # (1.0-4.8) k/uL Monocytes # (0-1.0) k/uL Eosinophils # (0-0.7) k/uL Basophils # (0-0.2) k/uL Sodium (137-145) mmol/L Potassium (3.5-5.1) mmol/L Chloride (98-107) mmol/L Carbon Dioxide (22-30) mmol/L Anion Gap mmol/L BUN (7-17) mg/dL Creatinine (0.52-1.04) mg/dL Est GFR (CKD-EPI)AfAm (>60 ml/min/1.73 sqM) Est GFR (CKD-EPI)NonAf (>60 ml/min/1.73 sqM) Glucose (74-99) mg/dL Plasma Lactic Acid Justyn 0.7 (0.7-2.0) mmol/L Calcium (8.4-10.2) mg/dL Total Bilirubin (0.2-1.3) mg/dL AST (14-36) U/L ALT (9-52) U/L Alkaline Phosphatase (38-126) U/L Total Protein (6.3-8.2) g/dL Albumin (3.5-5.0) g/dL Amylase (30-110) U/L Lipase (23-300) U/L Urine Color Urine Appearance (Clear) Urine pH (5.0-8.0) Ur Specific [place] (1.001-1.035) Urine Protein (Negative) Urine Glucose (UA) (Negative) Urine Ketones (Negative) Urine Blood (Negative) Urine Nitrite (Negative) Urine Bilirubin (Negative) Urine Urobilinogen (<2.0) mg/dL Ur Leukocyte Esterase (Negative) Disposition Clinical Impression: Diverticulitis of intestine with abscess Disposition: ADMITTED IP TO THIS HOSP Additional Instructions: Please take antibiotics as directed. Please follow-up with primary care in 1-2 days. Return here to the emergency Department if you're having any worsening symptoms, sudden pain, or fever. Is patient prescribed a controlled substance at d/c from ED?: No Referrals: Rodney Joseph MD [Primary Care Provider] - 1-2 days Time of Disposition: 17:25
[2019-03-31] MEDS ORDERED: SODIUM CHLORIDE 0.9% 500 ML 500 ML IV STA (14:50)
[2019-03-31 14:57] LABS: Basophils % (A) 0 %; Eosinophils # (A) 0.2 k/uL (0-0.7); Eosinophils % (A) 2 %; HGB 12.8 gm/dL (11.4-16.0); Lymphocytes # (A) 1.3 k/uL (1.0-4.8); Lymphocytes % (A) 14 %; MCH 28.4 pg (25.0-35.0); MCV 88.8 fL (80.0-100.0); Mean Platelet Volume 7.1; Monocytes # (A) 0.5 k/uL (0-1.0); Monocytes % (A) 5 %; Neutrophils # (A) 7.2 k/uL (1.3-7.7); Neutrophils % (A) 77 %; Platelet Count 226 k/uL (150-450); WBC 9.4 k/uL (3.8-10.6)
[2019-03-31 15:04] LABS: Appearance,Urine Clear (Clear); Bilirubin,Urine Negative (Negative); Blood,Urine Negative (Negative); Color,Urine Yellow; Glucose,Urine (UA) Negative (Negative); Ketones,Urine Trace (Negative); Leukocyte Esterase,Urine Negative (Negative); Nitrite,Urine Negative (Negative); PH, Urine 5.5 (5.0-8.0); Protein,Urine Negative (Negative); Specific Gravity,Urine 1.021 (1.001-1.035); Urobilinogen,Urine <2.0 mg/dL (<2.0)
[2019-03-31 15:51] LABS: ALT 22 U/L (9-52); AST 28 U/L (14-36); Albumin 4.3 g/dL (3.5-5.0); Alkaline Phosphatase 93 U/L (38-126); Amylase 58 U/L (30-110); Anion Gap 7 mmol/L; Blood Urea Nitrogen 17 mg/dL (7-17); Calcium 9.2 mg/dL (8.4-10.2); Carbon Dioxide 29 mmol/L (22-30); Chloride 104 mmol/L (98-107); Glucose 94 mg/dL (74-99); Lipase 68 U/L (23-300); Potassium 4.1 mmol/L (3.5-5.1); Sodium 140 mmol/L (137-145); Total Bilirubin 0.6 mg/dL (0.2-1.3); Total Protein 7.1 g/dL (6.3-8.2)
--- NOTE | 2019-03-31 16:50 | CT ---
EXAMINATION TYPE: CT abdomen pelvis w con DATE OF EXAM: 03/31/2019 COMPARISON: 01/19/2017 HISTORY: Generalized abdominal pain, bloating, loose stools x 2-[address] DLP: 1208.5 mGycm Automated exposure control for dose reduction was used. TECHNIQUE: Helical acquisition of images was performed from the lung bases through the pelvis. CONTRAST: Performed without Oral Contrast and with IV Contrast, patient injected with 100 mL of Isovue 300. FINDINGS: There is mild subsegmental atelectasis at the right lung base. There is no pleural effusion. There is hiatal hernia. Heart appears slightly enlarged. There is no pericardial effusion. Liver shows no focal defect. There are clips from cholecystectomy. Spleen and pancreas appear normal. Bile ducts are not dilated. There is no adrenal mass. Kidneys show satisfactory contrast opacification. Ureters are not dilated. There is no retroperitoneal adenopathy. Bladder distends smoothly. There is fat stranding and extensive inflammatory changes in the pelvis around the sigmoid colon. The re are multiple sigmoid diverticula. There is extraluminal air bubble posterior to the lower sigmoid colon. I see no evidence of free air in the abdomen. There is no ascites. There is no evidence of a b owel obstruction. There is a degenerative first-degree L4-5 spondylolisthesis. There is no lumbar compression fracture. I see no bony destructive process. Lumbar spine unchanged compared to old exam. IMPRESSION: THERE IS EVIDENCE OF SIGMOID DIVERTICULITIS WITH EXTENSIVE PERICOLIC FLUID AND FAT STRANDING. FLUID A ND AIR BUBBLES IN THE PELVIS CONSISTENT WITH ABSCESS. THERE IS BEEN RE-DUCTION OF THE ABDOMINAL VENTR AL HERNIA COMPARED TO OLD EXAM. DIVERTICULITIS IS NEW COMPARED TO OLD EXAM.
[2019-03-31] MEDS ORDERED: metroNIDAZOLE-NS PMX 500 MG in SALINE 1 100ML.BAG IVPB STA (17:24)
[2019-03-31] MEDS ORDERED: CIPROFLOXACIN/DEXTROSE PMX 400 MG in DEXTROSE/WATER 1 200ML.BAG IVPB STA (17:24)
[2019-03-31] MEDS ORDERED: NALOXONE 0.4 MG/ML 1 ML VIAL IV PRN (17:52)
[2019-03-31] MEDS: SODIUM CHLORIDE 0.9% 1,000 ML IV SCH (18:20)
[2019-03-31] MEDS: PIPERACILLIN-TAZOBACTAM 3.375 GM in SODIUM CHLORIDE 0.9% 100 ML IVPB SCH (20:17)
[2019-03-31] MEDS: LOSARTAN 50 MG TAB PO SCH (22:47)
[2019-03-31] MEDS: ACETAMINOPHEN TAB 325 MG TAB PO PRN (22:47)
[2019-04-01] MEDS: PIPERACILLIN-TAZOBACTAM 3.375 GM in SODIUM CHLORIDE 0.9% 100 ML IVPB SCH ×4 (01:04→23:17)
[2019-04-01] MEDS: SODIUM CHLORIDE 0.9% 1,000 ML IV SCH ×3 (01:05→21:32)
[2019-04-01] MEDS ORDERED: metroNIDAZOLE-NS PMX 500 MG in SALINE 1 100ML.BAG IVPB SCH (02:00)
--- NOTE | 2019-04-01 07:06 | P.GSCN ---
History of Present Illness Consult date: 04/01/19 Reason for Consult: Left lower quadrant pain, diverticulitis History of present illness: This is a 74-year-old female who had complaints of left lower quadrant pain. Patient was worked up emergent. She is found have evidence of diverticulitis. Patient states her pain has improved from last night. She currently is hungry. Past Medical History Past Medical History: Eye Disorder, GERD/Reflux, Hyperlipidemia, Hypertension, Osteoarthritis (OA) Additional Past Medical History / Comment(s): steroids Sep 2017,double vision,bowel obstruction, arthritis, LUMBAR STENOSIS, MURMUR,TIA, INCONT OF URINE, UTI,HIATAL HERNIA, VERICOSE VEINS History of Any Multi-Drug Resistant Organisms: None Reported Past Surgical History: Cholecystectomy, Hysterectomy, Joint Replacement, Orthopedic Surgery Additional Past Surgical History / Comment(s): bilateral knee replacement, carpal tunnel, bowel resection, sinus surgery CATARACT SX AND HAS DOUBLE VISON.HAD VARICOSE VEINS SX..LEFT TOE SX, RIGHT FOOT SX,Rt shoulder Past Anesthesia/Blood Transfusion Reactions: Motion Sickness Past Psychological History: No Psychological Hx Reported Smoking Status: Former smoker Past Alcohol Use History: None Reported Past Drug Use History: None Reported - Past Family History Father Family Medical History: Diabetes Mellitus Mother Family Medical History: No Reported History Additional Family Medical History / Comment(s): AT EARLY AGE Medications and Allergies Home Medications Medication Instructions Recorded Confirmed Type Losartan Potassium [Cozaar] 50 mg PO BID 07/12/14 03/31/19 History Omeprazole [PriLOSEC] 20 mg PO DAILY 07/12/14 03/31/19 History Acetaminophen [Tylenol Arthritis] 650 mg PO BID PRN 01/19/17 03/31/19 History Calcium Carb/Vitamin D3/Vit K1 1 tab PO DAILY 01/19/17 03/31/19 History [Viactiv Soft Chew] Krill Oil 500 mg PO DAILY 01/19/17 03/31/19 History Multivitamins, Thera [Multivitamin 1 tab PO DAILY 01/19/17 03/31/19 History (formulary)] Loratadine [Claritin] 10 mg PO DAILY 11/10/17 03/31/19 History Ezetimibe 10 mg PO DAILY 04/26/18 03/31/19 History Magnesium 200 mg PO DAILY 04/26/18 03/31/19 History Turmeric Root Extract [Turmeric] 500 mg PO DAILY 04/26/18 03/31/19 History Cholecalciferol [Vitamin D3 (25 1,000 unit PO DAILY 03/31/19 03/31/19 History Mcg = 1000 Iu)] Metoprolol Succinate (ER) [Toprol 25 mg PO DAILY 03/31/19 03/31/19 History Xl] Allergies Allergy/AdvReac Type Severity Reaction Status Date / Time hydromorphone HCl Allergy Rash/Hives, Verified 03/31/19 14:47 [From Dilaudid] nausea/vomi ting Sulfa (Sulfonamide Allergy vaginal Verified 03/31/19 14:47 Antibiotics) sores codeine AdvReac Hallucinati Verified 03/31/19 14:47 ons ibuprofen [From Motrin] AdvReac Hallucinati Verified 03/31/19 14:47 ons meperidine HCl [From Demerol] AdvReac Nausea & Verified 03/31/19 14:47 Vomiting morphine AdvReac Nausea & Verified 03/31/19 14:47 Vomiting,hives tramadol AdvReac nausea,dizz Verified 03/31/19 14:47 y blood thinner that was given AdvReac coughing Uncoded 04/30/18 06:48 in ER up blood clots & vaginal bleeding cholesterol med AdvReac muscle Uncoded 04/30/18 06:48 cramps pain meds AdvReac nausea,dizz Uncoded 04/30/18 06:48 y Surgical - Exam Vital Signs Temp Pulse Resp BP Pulse Ox 99.3 F 101 H 18 158/75 99 03/31/19 14:24 03/31/19 14:24 03/31/19 14:24 03/31/19 14:24 03/31/19 14:24 - General well developed, well nourished, no distress - Eyes PERRL - ENT normal pinna - Neck no masses - Respiratory normal expansion - Cardiovascular Rhythm: regular - Abdomen Mild left lower quadrant tenderness. There is no rebound or guarding. Abdomen: soft Results - Labs 03/31/19 14:50 03/31/19 14:50 Abnormal Lab Results - Last 24 Hours (Table) 03/31/19 Range/Units 14:41 Urine Ketones Trace H (Negative) Diabetes panel 03/31/19 Range/Units 14:50 Sodium 140 (137-145) mmol/L Potassium 4.1 (3.5-5.1) mmol/L Chloride 104 (98-107) mmol/L Carbon Dioxide 29 (22-30) mmol/L BUN 17 (7-17) mg/dL Creatinine 0.54 (0.52-1.04) mg/dL Glucose 94 (74-99) mg/dL Calcium 9.2 (8.4-10.2) mg/dL AST 28 (14-36) U/L ALT 22 (9-52) U/L Alkaline Phosphatase 93 (38-126) U/L Total Protein 7.1 (6.3-8.2) g/dL Albumin 4.3 (3.5-5.0) g/dL Calcium panel 03/31/19 Range/Units 14:50 Calcium 9.2 (8.4-10.2) mg/dL Albumin 4.3 (3.5-5.0) g/dL Pituitary panel 03/31/19 Range/Units 14:50 Sodium 140 (137-145) mmol/L Potassium 4.1 (3.5-5.1) mmol/L Chloride 104 (98-107) mmol/L Carbon Dioxide 29 (22-30) mmol/L BUN 17 (7-17) mg/dL Creatinine 0.54 (0.52-1.04) mg/dL Glucose 94 (74-99) mg/dL Calcium 9.2 (8.4-10.2) mg/dL Adrenal panel 03/31/19 Range/Units 14:50 Sodium 140 (137-145) mmol/L Potassium 4.1 (3.5-5.1) mmol/L Chloride 104 (98-107) mmol/L Carbon Dioxide 29 (22-30) mmol/L BUN 17 (7-17) mg/dL Creatinine 0.54 (0.52-1.04) mg/dL Glucose 94 (74-99) mg/dL Calcium 9.2 (8.4-10.2) mg/dL Total Bilirubin 0.6 (0.2-1.3) mg/dL AST 28 (14-36) U/L ALT 22 (9-52) U/L Alkaline Phosphatase 93 (38-126) U/L Total Protein 7.1 (6.3-8.2) g/dL Albumin 4.3 (3.5-5.0) g/dL - Imaging CT scan - pelvis: report reviewed (Diverticulitis with inflamed sigmoid colon. There is a few scattered air bubbles in the pelvis.) Assessment and Plan Assessment: Diverticulitis with microperforation. Patient received IV antibiotics. He has improved from last night. She'll be placed on clear liquid diet. I anticipate she'll be discharged over the weekend. We will plan for outpatient colonoscopy. Dr. Daniels will be covering me over the weekend.
[2019-04-01] MEDS ORDERED: NON-FORMULARY DRUG (Krill Oil [Krill Oil] 500 MG) PO SCH (09:00)
[2019-04-01] MEDS ORDERED: NON-FORMULARY DRUG (Turmeric Root Extract [Turmeric] 500 MG) PO SCH (09:00)
[2019-04-01] MEDS ORDERED: CIPROFLOXACIN/DEXTROSE PMX 400 MG in DEXTROSE/WATER 1 200ML.BAG IVPB SCH (09:00)
[2019-04-01] MEDS: CALCIUM CARB-VIT D 500MG-200UN 1 EACH TAB PO SCH (09:54)
[2019-04-01] MEDS: LORATADINE 10 MG TAB PO SCH (09:54)
[2019-04-01] MEDS: EZETIMIBE 10 MG TAB PO SCH (09:54)
[2019-04-01] MEDS: LOSARTAN 50 MG TAB PO SCH ×2 (09:54→20:43)
[2019-04-01] MEDS: CHOLECALCIFEROL 1,000 UNIT TAB PO SCH (09:54)
[2019-04-01] MEDS: MAGNESIUM OXIDE 400 MG TAB PO SCH (09:57)
[2019-04-01] MEDS: METOPROLOL SUCCINATE (ER) 25 MG TAB.ER.24H PO SCH (10:05)
[2019-04-01] MEDS: MULTIVITAMINS, THERA 1 EACH TAB PO SCH (10:57)
[2019-04-01] MEDS: PANTOPRAZOLE 40 MG TABLET PO SCH (10:57)
[2019-04-01] MEDS: ACETAMINOPHEN TAB 325 MG TAB PO PRN (11:20)
[2019-04-01] MEDS: ENOXAPARIN 40 MG/0.4 ML SYRINGE SQ SCH (14:04)
--- NOTE | 2019-04-01 14:39 | HP ---
HISTORY AND PHYSICAL DATE OF ADMISSION: March 31, 2019 DATE OF SERVICE: April 01, 2019. PRESENTING COMPLAINT: Abdominal pain. HISTORY OF PRESENTING COMPLAINT: This is a very pleasant 74-year-old patient who follows with Dr. Joseph. Chronic stable medical conditions include hyperlipidemia, GERD, hypertension, osteoarthritis, urinary incontinence, hiatal hernia. For about 2 or 3 days, she has been having what she describes as upset bowel movements with variable in consistency. Yesterday developed lower abdominal pain rather significant. There was no nausea, vomiting. No fever. No chills. Decided to present to the ER. CT scan of the abdomen showed diverticulitis with an abscess. The patient is seen by Dr. Ascencio. Patient is started on clear liquids. Put on IV antibiotics antibiotics. Pain is slightly better since she has come in. She thinks she may have may have had a similar episode in the past. REVIEW OF SYSTEMS: CONSTITUTIONAL: Tired. HEENT: None. RESPIRATORY none. GASTROINTESTINAL as above. GENITOURINARY: Urinary incontinence. MUSCULOSKELETAL: Arthritic pain in joints. DERMATOLOGICAL, HEMATOLOGIC, LYMPHATIC: none. PSYCHIATRY none. NEUROLOGICAL: None. PAST MEDICAL HISTORY: GERD, hyperlipidemia, hypertension, osteoarthritis, bowel obstruction, arthritis, lumbar stenosis, incontinence of urine, varicose veins. PAST SURGICAL HISTORY: Cholecystectomy, hysterectomy, bilateral knee replacement, carpal tunnel surgery, bowel resection, sinus surgery, cataract surgery leading to some double vision, varicose veins, left toe surgery, right foot surgery right shoulder surgery. SOCIAL HISTORY: Started smoking at age of 17, smoked 1 pack a day stopped in 1980s. Alcohol none. Son lives at home. FAMILY HISTORY: Diabetes. HOME MEDICATIONS: 1. Toprol-XL 25 mg a day. 2. Vitamin D3 1000 units p.o. daily. 3. 500 mg daily. 4. Prilosec 20 mg p.o. daily. 5. Multivitamin 1 tablet p.o. daily. 6. Magnesium 200 mg p.o. daily. 7. Cozaar 50 mg b.i.d. 8. Claritin 10 mg p.o. daily. 9. Krill oil 5 mg p.o. daily. 10.Zetia 10 mg p.o. daily. 11.Y-active soft chew 1 tablet p.o. daily. 12.Tylenol Arthritis 650 mg b.i.d. p.r.n. ALLERGIES: INCLUDE DILAUDID, SULFA, CODEINE, IBUPROFEN, MEPERIDINE, MORPHINE, ULTRAM, SOME BLOOD THINNERS, CHOLESTEROL MEDICATIONS, PAIN MEDICATIONS. Some of these are side effects. PHYSICAL EXAMINATION: VITAL SIGNS: Vital signs on presentation: Temperature 99.3, pulse 101, respiration 18, blood pressure 115/75, pulse ox 99% on room air. GENERAL APPEARANCE: Well built, BMI 40.4, is lying in bed, not in distress. EYES: Pupils equal. Conjunctivae normal. HEENT: External appearance of nose and ears normal. Oral cavity normal. NECK: JVD not raised. Mass not palpable. RESPIRATORY: Effort normal. LUNGS: Fair air entry. CARDIOVASCULAR: First and second sounds normal. No edema. ABDOMEN: Lower abdominal tenderness. No guarding or rigidity. Liver and spleen not palpable. Bowel sounds are present. LYMPHATIC: No lymph nodes palpable in the neck and axilla. PSYCHIATRY: Alert and oriented x3. Mood and affect normal. NEUROLOGICAL: Pupils equal. Cranial nerves grossly intact. Power and sensation grossly intact. MUSCULOSKELETAL: Evidence of osteoarthritis especially in the hands. INVESTIGATIONS: White count 9.4, hemoglobin 12.8, potassium 4.1, BUN and creatinine is normal. CT scan of the abdomen and pelvis fat stranding, extensive inflammatory changes in the pelvis around the sigmoid colon, multiple sigmoid diverticula, extraluminal air bubble posterior to the lower sigmoid colon. There is no free air in the abdomen. ASSESSMENT: 1. Acute sigmoid diverticulitis with associated abscess, present on admission. 2. Hyperlipidemia. 3. Essential hypertension. 4. Primary osteoarthritis. 5. Chronic urinary incontinence. 6. Hiatal hernia. PLAN: Patient is on IV Zosyn, IV fluids. Put on clear liquids. Dr. Ascencio from General surgery was consulted. Currently, antibiotics are to continue. We will see how the patient does. Care was discussed with the patient. Questions were answered. Copy to Dr. Joseph. JOSÉ MIGUEL / CAROLE: [id number] /
[2019-04-02] MEDS: SODIUM CHLORIDE 0.9% 1,000 ML IV SCH ×3 (05:05→21:49)
[2019-04-02] MEDS: PIPERACILLIN-TAZOBACTAM 3.375 GM in SODIUM CHLORIDE 0.9% 100 ML IVPB SCH ×3 (08:03→23:19)
[2019-04-02] MEDS: ENOXAPARIN 40 MG/0.4 ML SYRINGE SQ SCH (10:23)
[2019-04-02] MEDS: PANTOPRAZOLE 40 MG TABLET PO SCH (10:24)
[2019-04-02] MEDS: LORATADINE 10 MG TAB PO SCH (10:24)
[2019-04-02] MEDS: CHOLECALCIFEROL 1,000 UNIT TAB PO SCH (10:24)
[2019-04-02] MEDS: METOPROLOL SUCCINATE (ER) 25 MG TAB.ER.24H PO SCH (10:24)
[2019-04-02] MEDS: CALCIUM CARB-VIT D 500MG-200UN 1 EACH TAB PO SCH (10:24)
[2019-04-02] MEDS: EZETIMIBE 10 MG TAB PO SCH (10:24)
[2019-04-02] MEDS: LOSARTAN 50 MG TAB PO SCH ×2 (10:24→20:39)
[2019-04-02] MEDS: MULTIVITAMINS, THERA 1 EACH TAB PO SCH (10:24)
[2019-04-02] MEDS: MAGNESIUM OXIDE 400 MG TAB PO SCH (10:29)
--- NOTE | 2019-04-02 14:47 | P.PN ---
Subjective Progress Note Date: 04/02/19 Principal diagnosis: Diverticulitis Patient doing better today. She says her pain is improved. She did have a small bowel movement. No labs from today. Tolerating clears. Asking for more to eat. Objective - Vital Signs Vital signs: Vital Signs Temp 97.6 F 04/02/19 07:36 Pulse 71 04/02/19 07:36 Resp 16 04/02/19 07:36 BP 117/68 04/02/19 07:36 Pulse Ox 97 04/02/19 07:36 Intake & Output 04/01/19 04/02/19 04/02/19 18:59 06:59 18:59 Intake Total 960 1480 Balance 960 1480 Intake: IV 960 Sodium Chloride 0.9% 1, 960 000 ml @ 120 mls/hr IV . Q8H20M [facility] Rx#:[id number] Intake, IV Titration 1300 Amount Piperacillin-Tazobactam 3 100 .375 gm In Sodium Chloride 0.9% 100 ml @ 25 mls/hr IVPB Q8HR [facility] Rx# :[id number] Sodium Chloride 0.9% 1, 1200 000 ml @ 120 mls/hr IV . Q8H20M [facility] Rx#:[id number] Oral 180 Other: Voiding Method Toilet Toilet # Voids 2 2 2 - Exam Abdomen: Soft, nondistended, mild left lower quadrant tenderness - Labs CBC & Chem 7: 03/31/19 14:50 03/31/19 14:50 Labs: Microbiology - Last 24 Hours (Table) 03/31/19 18:40 Blood Culture - Preliminary Blood No Growth after 24 hours Assessment and Plan (1) Diverticulitis of intestine with abscess Narrative/Plan: Continue IV antibiotics. Recheck labs tomorrow. Advance diet to full liquids. Ambulate. Current Visit: Yes Status: Acute Code(s): K57.80 - DVTRCLI OF INTEST, PART UNSP, W PERF AND ABSCESS W/O BLEED SNOMED Code(s): 990320318
--- NOTE | 2019-04-02 15:44 | PN ---
PROGRESS NOTE DATE OF SERVICE: 04/02/2019. PRESENTING COMPLAINT: Abdominal pain. INTERVAL HISTORY: This patient presented with acute diverticulitis with abscess, still having significant abdominal pain, some loose bowel movements. No nausea, vomiting. No fever. No chills. On IV antibiotics. Remains on clear liquids. Up to the bathroom. REVIEW OF SYSTEMS: Done for constitutional, cardiovascular, GI, pulmonary; relevant findings as above. CURRENT MEDICATIONS: Reviewed and include IV Zosyn and IV fluids. EXAMINATION: VITAL SIGNS: Temperature 97.6, pulse 71, respirations 16, blood pressure 117/68, pulse ox 97% on room air. GENERAL APPEARANCE: Sitting up on a chair, not in distress. EYES: Pupils are equal. Conjunctivae normal. NECK: JVD not raised. Mass not palpable. RESPIRATORY: Effort normal LUNGS are clear. CARDIOVASCULAR: First and second sounds normal. No edema. ABDOMEN: Lower abdominal tenderness. No guarding or rigidity. Liver and spleen not palpable. PSYCHIATRY: Alert and oriented x3. Mood and affect normal. INVESTIGATIONS: No blood work from today. ASSESSMENT: 1. Acute sigmoid diverticulitis with abscess present on admission, slow to respond. 2. Hyperlipidemia. 3. Essential hypertension. 4. Primary osteoarthritis. 5. Chronic urine incontinence. 6. Hiatal hernia. PLAN: Continue with IV antibiotics and IV fluids. Remain on clear liquids. Check labs in the morning. Care was discussed with the patient. MMODL / IJN: [id number] /
[2019-04-03] MEDS: SODIUM CHLORIDE 0.9% 1,000 ML IV SCH ×3 (04:45→20:39)
[2019-04-03] MEDS: PIPERACILLIN-TAZOBACTAM 3.375 GM in SODIUM CHLORIDE 0.9% 100 ML IVPB SCH ×3 (07:15→23:27)
[2019-04-03 09:05] LABS: Basophils % (A) 1 %; Eosinophils # (A) 0.1 k/uL (0-0.7); Eosinophils % (A) 1 %; HCT 35.1 % (34.0-46.0); Lymphocytes # (A) 1.2 k/uL (1.0-4.8); Lymphocytes % (A) 27 %; MCH 28.3 pg (25.0-35.0); MCHC 31.5 g/dL (31.0-37.0); MCV 90.1 fL (80.0-100.0); Mean Platelet Volume 7.6; Monocytes # (A) 0.3 k/uL (0-1.0); Monocytes % (A) 6 %; Neutrophils # (A) 2.7 k/uL (1.3-7.7); Neutrophils % (A) 63 %; Platelet Count 210 k/uL (150-450); RBC 3.89 m/uL (3.80-5.40); RDW 13.2 % (11.5-15.5); WBC 4.3 k/uL (3.8-10.6)
[2019-04-03 09:24] LABS: Anion Gap 5 mmol/L; Blood Urea Nitrogen 3 mg/dL (7-17); Calcium 8.8 mg/dL (8.4-10.2); Carbon Dioxide 29 mmol/L (22-30); Chloride 107 mmol/L (98-107); Glucose 110 mg/dL (74-99); Potassium 3.3 mmol/L (3.5-5.1); Sodium 141 mmol/L (137-145)
--- NOTE | 2019-04-03 09:40 | P.PN ---
Subjective Progress Note Date: 04/03/19 Principal diagnosis: Diverticulitis Patient says she does feel better today. Pain 2-3 out of 10. She did have some diarrhea. Tolerating full liquids. She is afebrile. Objective - Vital Signs Vital signs: Vital Signs Temp 97.9 F 04/03/19 07:05 Pulse 73 04/03/19 07:05 Resp 16 04/03/19 07:05 BP 118/77 04/03/19 07:05 Pulse Ox 95 04/03/19 07:05 Intake & Output 04/02/19 04/03/19 04/03/19 18:59 06:59 18:59 Intake Total 1840 420 Balance 1840 420 Intake: Intake, IV Titration 1300 420 Amount Piperacillin-Tazobactam 3 100 .375 gm In Sodium Chloride 0.9% 100 ml @ 25 mls/hr IVPB Q8HR [facility] Rx# :[id number] Sodium Chloride 0.9% 1, 1200 420 000 ml @ 120 mls/hr IV . Q8H20M JUN Rx#:[id number] Oral 540 Other: Voiding Method Toilet Toilet # Voids 2 2 - Exam Abdomen: Soft, nondistended, mild left lower quadrant tenderness - Labs CBC & Chem 7: 04/03/19 08:42 04/03/19 08:42 Labs: Abnormal Lab Results - Last 24 Hours (Table) 04/03/19 04/03/19 Range/Units 08:42 08:42 Hgb 11.0 L (11.4-16.0) gm/dL Potassium 3.3 L (3.5-5.1) mmol/L BUN 3 L (7-17) mg/dL Glucose 110 H (74-99) mg/dL Microbiology - Last 24 Hours (Table) 03/31/19 18:40 Blood Culture - Preliminary Blood No Growth after 48 hours Assessment and Plan (1) Diverticulitis of intestine with abscess Narrative/Plan: Will increase diet to low fiber. Continue antibodies. Discharge later today or tomorrow. Current Visit: Yes Status: Acute Code(s): K57.80 - DVTRCLI OF INTEST, PART UNSP, W PERF AND ABSCESS W/O BLEED SNOMED Code(s): 693896652
[2019-04-03] MEDS: PANTOPRAZOLE 40 MG TABLET PO SCH (10:06)
[2019-04-03] MEDS: CALCIUM CARB-VIT D 500MG-200UN 1 EACH TAB PO SCH (10:06)
[2019-04-03] MEDS: CHOLECALCIFEROL 1,000 UNIT TAB PO SCH (10:06)
[2019-04-03] MEDS: MULTIVITAMINS, THERA 1 EACH TAB PO SCH (10:06)
[2019-04-03] MEDS: METOPROLOL SUCCINATE (ER) 25 MG TAB.ER.24H PO SCH (10:06)
[2019-04-03] MEDS: LORATADINE 10 MG TAB PO SCH (10:06)
[2019-04-03] MEDS: LOSARTAN 50 MG TAB PO SCH ×2 (10:07→20:26)
[2019-04-03] MEDS: ENOXAPARIN 40 MG/0.4 ML SYRINGE SQ SCH (10:07)
[2019-04-03] MEDS: MAGNESIUM OXIDE 400 MG TAB PO SCH (10:07)
[2019-04-03] MEDS: EZETIMIBE 10 MG TAB PO SCH (10:09)
--- NOTE | 2019-04-03 22:20 | PN ---
PROGRESS NOTE DATE OF SERVICE: 04/03/2019. PRESENT COMPLAINT: Abdominal pain. INTERVAL HISTORY: Patient admitted with acute diverticulitis with local abscess. Abdominal pain is greatly improved. Did have a bowel movement. Diet was advanced by Surgery. Did keep it down. Sitting up, more comfortable. REVIEW OF SYSTEMS: Done for constitutional, cardiovascular, GI, pulmonary; relevant findings as above. CURRENT MEDICATIONS: Reviewed, that include IV Zosyn, IV fluids. PHYSICAL EXAMINATION: Temperature 97.8, pulse 86, respirations 16, blood pressure 148/85, pulse ox 95% on room air. GENERAL APPEARANCE: Sitting up comfortable. EYES: Pupils equal. Conjunctivae normal. NECK: JVD not raised. Mass not palpable. Respiratory effort normal. LUNGS: Clear. CARDIOVASCULAR: 1st and 2nd heart sounds normal. No edema. ABDOMEN: Soft. No tenderness. No guarding or rigidity. PSYCHIATRY: Alert and oriented x3. Mood and affect normal. INVESTIGATIONS: White count 4.3, potassium 3.3. ASSESSMENT: 1. Acute sigmoid diverticulitis with abscess with clinical improvement. 2. Hyperlipidemia. 3. Essential hypertension. 4. Primary osteoarthritis. 5. Chronic urinary incontinence. 6. Hiatal hernia. PLAN: Care was discussed at length with the patient's son at the bedside. Doing much better. If remains stable can be discharged tomorrow. MMODL / IJN: [id number] /
[2019-04-04 02:17] VITALS: RESP 16
[2019-04-04 08:26] LABS: Anion Gap 5 mmol/L; Blood Urea Nitrogen 5 mg/dL (7-17); Calcium 9.2 mg/dL (8.4-10.2); Carbon Dioxide 29 mmol/L (22-30); Chloride 107 mmol/L (98-107); Glucose 81 mg/dL (74-99); Potassium 3.7 mmol/L (3.5-5.1); Sodium 141 mmol/L (137-145)
[2019-04-04] MEDS: PIPERACILLIN-TAZOBACTAM 3.375 GM in SODIUM CHLORIDE 0.9% 100 ML IVPB SCH (08:49)
[2019-04-04] MEDS: EZETIMIBE 10 MG TAB PO SCH (08:50)
[2019-04-04] MEDS: ENOXAPARIN 40 MG/0.4 ML SYRINGE SQ SCH (08:50)
[2019-04-04] MEDS: MAGNESIUM OXIDE 400 MG TAB PO SCH (08:51)
[2019-04-04] MEDS: LORATADINE 10 MG TAB PO SCH (08:51)
[2019-04-04] MEDS: CALCIUM CARB-VIT D 500MG-200UN 1 EACH TAB PO SCH (08:53)
[2019-04-04] MEDS: METOPROLOL SUCCINATE (ER) 25 MG TAB.ER.24H PO SCH (08:53)
[2019-04-04] MEDS: PANTOPRAZOLE 40 MG TABLET PO SCH (08:53)
[2019-04-04] MEDS: LOSARTAN 50 MG TAB PO SCH (08:53)
[2019-04-04] MEDS: CHOLECALCIFEROL 1,000 UNIT TAB PO SCH (08:54)
[2019-04-04] MEDS: MULTIVITAMINS, THERA 1 EACH TAB PO SCH (08:54)
[2019-04-04 10:05] VITALS: BP 150/75; PULSE 74; TEMP 98
[2019-04-04] MEDS: ACETAMINOPHEN TAB 325 MG TAB PO PRN (11:32)
--- NOTE | 2019-04-04 12:06 | P.PN ---
Progress Note - Text Progress Note Date: 04/04/19 The patient feels well. She states she has no pain. She's had multiple bowel movements over the weekend. On exam her vital signs are stable. Her abdomen soft. Resolving diverticulitis. Patient was discharged home today. She'll be placed on oral and biotherapy. She'll follow-up in one week.
--- NOTE | 2019-04-05 06:39 | DS ---
DISCHARGE SUMMARY DATE OF ADMISSION: 03/31/2019 DATE OF DISCHARGE: 04/04/2019 FINAL DIAGNOSES: 1. Acute sigmoid diverticulitis with localized abscess. 2. Hyperlipidemia. 3. Essential hypertension. 4. Primary osteoarthritis. 5. Chronic urinary incontinence. 6. Hiatal hernia. HOSPITAL COURSE: This patient presented with abdominal pain and cramping. The CT scan of the abdomen showed a localized diverticulitis with localized abscess seen by Dr. Ascencio from General Surgery. The patient now tolerating a soft bland diet. No abdominal pain. No fever. No chills. Cleared by Surgery to go home. On examination, afebrile. ABDOMEN: Soft, nontender. INVESTIGATIONS: Potassium 3.7. White count 4.3. Care was discussed with the patient. I told her to stay on a soft bland diet. DISCHARGE MEDICATIONS: 1. Cozaar 50 mg b.i.d. 2. Prilosec 20 mg p.o. daily. 3. Tylenol Arthritis 650 mg p.o. b.i.d. p.r.n. 4. Viactiv soft chew 1 tablet p.o. daily. 5. Krill oil. 6. Multivitamin. 7. Claritin 10 mg a day. 8. Zetia 10 mg p.o. daily. 9. Magnesium 200 mg p.o. daily. 10.Turmeric 500 mg p.o. daily. 11.Vitamin D3, 1000 units p.o. daily. 12.Toprol XL 25 mg p.o. daily. 13.Augmentin 875/125 one tab q.12, twenty tablets. Follow up with Dr. Joseph on 04/06/2019. Follow up with Dr. Ascencio on 04/12/2019. DIET: Soft, bland. MMODL / IJN: [id number] /
== END 2019-04-04 15:15 | disposition home or self-care (01) | DRG 392 ==
LOC: EC 14:18 → 4SSUR 17:37
PROVIDERS: ADMIT Hospitalist; ATTEND Hospitalist
DX: K57.20 Diverticulitis of large intestine with perforation and abscess without bleeding (principal); E78.5 Hyperlipidemia, unspecified; I10 Essential (primary) hypertension; K21.9 Gastro-esophageal reflux disease without esophagitis; K44.9 Diaphragmatic hernia without obstruction or gangrene; M19.91 Primary osteoarthritis, unspecified site; R32 Unspecified urinary incontinence; H53.2 Diplopia; I83.90 Asymptomatic varicose veins of unspecified lower extremity; M48.061 Spinal stenosis, lumbar region without neurogenic claudication; R01.1 Cardiac murmur, unspecified; Z79.899 Other long term (current) drug therapy; Z86.73 Personal history of transient ischemic attack (TIA), and cerebral infarction without residual deficits; Z88.6 Allergy status to analgesic agent; Z88.5 Allergy status to narcotic agent; Z88.2 Allergy status to sulfonamides; Z88.8 Allergy status to other drugs, medicaments and biological substances; Z87.891 Personal history of nicotine dependence; Z90.710 Acquired absence of both cervix and uterus; Z96.653 Presence of artificial knee joint, bilateral; Z90.49 Acquired absence of other specified parts of digestive tract; Z98.42 Cataract extraction status, left eye; Z98.41 Cataract extraction status, right eye; Z96.1 Presence of intraocular lens
CPT/HCPCS: 36415; 74177; 80048; 80053; 81003; 82150; 83605; 83690; 85025; 87040; 96360; 99285

== ENCOUNTER 2019-04-25 09:14 | Day surgery (SDC) | payer MEDICARE, BC ==
[2019-04-21 10:42] VITALS: BMI 38.6
[~2019-04-25 09:14] MED LIST changes: -ALPRAZolam 0.5 MG TAB PO PRN; -ASPIRIN 325 MG TAB PO ONE; -HEPARIN SODIUM 1,000 UN/ML (10ML VL) IV ONE; -HEPARIN SODIUM 1,000 UN/ML (10ML VL) ONE; -IOHEXOL 350 MG/ML 125ML BOTTLE INJ ONE; -IOPAMIDOL-370 125ML BTL INJ ONE; +LACTATED RINGERS 1,000 ML IV SCH; -LIDOCAINE 2% INJ 20 MG/ML SQ ONE; -MIDAZOLAM 2 MG/2 ML VIAL IV ONE; -MIDAZOLAM 2 MG/2 ML VIAL ONE; -RX INFO: IV CONTRAST WAS GIVEN 1 EACH MISC MISCELLANE PRN; -SODIUM CHLORIDE 0.9% 1,000 ML IV SCH; -SODIUM CHLORIDE 0.9% 1,000 ML in EMPTY BAG 1 BAG IV ONE; -VERAPAMIL 2.5 MG/ML 2 ML AMP ONE
[2019-04-25 09:41] VITALS: RESP 16; TEMP 97.6
[2019-04-25] MEDS ORDERED: PROPOFOL 10 MG/ML 20 ML VIAL IV ONE (10:03)
[2019-04-25] MEDS ORDERED: MIDAZOLAM 2 MG/2 ML VIAL ONE (10:03)
--- NOTE | 2019-04-25 10:07 | P.GSHP ---
History of Present Illness H&P Date: 04/25/19 Chief Complaint: Diverticulitis This is a 74-year-old female who presents today for colonoscopy. Patient had history of diverticulitis. Past Medical History Past Medical History: Eye Disorder, GERD/Reflux, Hyperlipidemia, Hypertension, Osteoarthritis (OA) Additional Past Medical History / Comment(s): double vision,bowel obstruction 2008, degenerating disks, MURMUR,TIA, HIATAL HERNIA, VERICOSE VEINS, occ p alpitations, diverticulitis/abscess, History of Any Multi-Drug Resistant Organisms: None Reported Past Surgical History: Bowel Resection, Cholecystectomy, Hysterectomy, Joint Replacement, Orthopedic Surgery Additional Past Surgical History / Comment(s): bilateral knee replacement, rt carpal tunnel, sinus surgery, jackie CATARACTS, .HAD VARICOSE VEINS surgery,left great toe replacement, surgery on 3 toes left foot(removed of great toe hardware and hammer toes), RIGHT FOOT buntionectomy, Rt shoulder rotator cuff, "bleeds ea sily" Past Anesthesia/Blood Transfusion Reactions: Family History of Problems w/ Anesthesia, Motion Sickness Additional Past Anesthesia/Blood Transfusion Reaction / Comment(s): sister-not sure what problem she had Smoking Status: Former smoker - Past Family History Son(s) Family Medical History: Cancer Father Family Medical History: Diabetes Mellitus Mother Family Medical History: No Reported History Additional Family Medical History / Comment(s): AT EARLY AGE Medications and Allergies Home Medications Medication Instructions Recorded Confirmed Type Losartan Potassium [Cozaar] 50 mg PO BID 07/12/14 04/21/19 History Omeprazole [PriLOSEC] 20 mg PO DAILY 07/12/14 04/25/19 History Acetaminophen [Tylenol Arthritis] 650 mg PO BID PRN 01/19/17 04/25/19 History Krill Oil 500 mg PO DAILY 01/19/17 04/25/19 History Multivitamins, Thera [Multivitamin 1 tab PO DAILY 01/19/17 04/21/19 History (formulary)] Loratadine [Claritin] 10 mg PO DAILY 11/10/17 04/25/19 History Ezetimibe 10 mg PO DAILY 04/26/18 04/25/19 History Magnesium 200 mg PO DIRECTED 04/26/18 04/25/19 History Turmeric Root Extract [Turmeric] 500 mg PO DIRECTED 04/26/18 04/25/19 History Cholecalciferol [Vitamin D3 (25 2,000 unit PO DAILY 03/31/19 04/25/19 History Mcg = 1000 Iu)] Metoprolol Succinate (ER) [Toprol 25 mg PO DAILY 03/31/19 04/21/19 History XL] Biotin 10,000 mcg PO DAILY 04/21/19 04/25/19 History Furosemide [Lasix] 20 mg PO DAILY PRN 04/21/19 04/25/19 History Allergies Allergy/AdvReac Type Severity Reaction Status Date / Time hydromorphone HCl Allergy Rash/Hives, Verified 04/25/19 09:29 [From Dilaudid] nausea/vomi ting Sulfa (Sulfonamide Allergy vaginal Verified 04/25/19 09:29 Antibiotics) sores codeine AdvReac Hallucinati Verified 04/25/19 09:29 ons ibuprofen [From Motrin] AdvReac Hallucinati Verified 04/25/19 09:29 ons meperidine HCl [From Demerol] AdvReac Nausea & Verified 04/25/19 09:29 Vomiting morphine AdvReac Nausea & Verified 04/25/19 09:29 Vomiting,hives tramadol AdvReac nausea,dizz Verified 04/25/19 09:29 y blood thinner that was given AdvReac coughing Uncoded 04/25/19 09:29 in ER up blood clots & vaginal bleeding cholesterol med AdvReac muscle Uncoded 04/25/19 09:29 cramps pain meds AdvReac nausea,dizz Uncoded 04/25/19 09:29 y Surgical - Exam Vital Signs Temp Pulse Resp BP Pulse Ox 97.6 F 87 16 96/52 98 04/25/19 09:36 04/25/19 09:36 04/25/19 09:36 04/25/19 09:36 04/25/19 09:36 - General well developed, well nourished, no distress - Eyes PERRL - ENT normal pinna - Neck no masses - Respiratory normal expansion - Cardiovascular Rhythm: regular - Abdomen Abdomen: soft, non tender Assessment and Plan Assessment: History of diverticula is. We'll perform colonoscopy.
--- NOTE | 2019-04-25 10:17 | P.OP ---
Date of Procedure: 04/25/19 Preoperative Diagnosis: Diverticulitis Postoperative Diagnosis: Rectal polyp Diverticulitis Procedure(s) Performed: Colonoscopy Anesthesia: MAC Surgeon: Brandon Ascencio Pathology: other (Rectal polyp) Condition: stable Disposition: PACU Description of Procedure: The patient's placed on the endoscopy table in the lateral position. She received IV sedation. Digital rectal exam was performed which revealed no abnormalities. Flexible colonoscope was then placed patient anus and passed throughout colon. Scope was passed beyond the sigmoid colon.; Was scarred and tortuous. There is evidence of numerous diverticula. The scope was then brought back the rectum and a polyp was seen. This was removed with a cold forcep. The scope was then withdrawn from the patient.
[2019-04-25 10:41] VITALS: BP 107/64; PULSE 68
== END 2019-04-25 11:16 | disposition home or self-care (01) ==
LOC: ORWHC2ENDO 09:14
PROVIDERS: ATTEND Surgery
DX: K57.92 Diverticulitis of intestine, part unspecified, without perforation or abscess without bleeding (principal); E78.5 Hyperlipidemia, unspecified; I10 Essential (primary) hypertension; K21.9 Gastro-esophageal reflux disease without esophagitis; K44.9 Diaphragmatic hernia without obstruction or gangrene; K62.1 Rectal polyp; M19.90 Unspecified osteoarthritis, unspecified site; Z79.899 Other long term (current) drug therapy; Z86.73 Personal history of transient ischemic attack (TIA), and cerebral infarction without residual deficits; Z87.891 Personal history of nicotine dependence; Z88.2 Allergy status to sulfonamides; Z88.3 Allergy status to other anti-infective agents; Z88.5 Allergy status to narcotic agent; Z88.6 Allergy status to analgesic agent; Z88.8 Allergy status to other drugs, medicaments and biological substances; Z96.653 Presence of artificial knee joint, bilateral; Z98.42 Cataract extraction status, left eye; Z98.41 Cataract extraction status, right eye; Z83.3 Family history of diabetes mellitus; Z80.9 Family history of malignant neoplasm, unspecified; Z90.49 Acquired absence of other specified parts of digestive tract
CPT/HCPCS: 88305; 45380; J2250; J2704

== ENCOUNTER → 2019-09-26 | Outpatient (CLI) | payer MEDICARE, BC ==
[2019-09-26 13:03] LABS: HCT 37.5 % (34.0-46.0); HGB 11.9 gm/dL (11.4-16.0); MCH 29.1 pg (25.0-35.0); MCHC 31.7 g/dL (31.0-37.0); MCV 91.8 fL (80.0-100.0); Mean Platelet Volume 6.7; Platelet Count 244 k/uL (150-450); RBC 4.09 m/uL (3.80-5.40); RDW 12.6 % (11.5-15.5); WBC 4.5 k/uL (3.8-10.6)
[2019-09-26 13:14] LABS: Potassium 4.5 mmol/L (3.5-5.1)
== END | disposition home or self-care (01) ==
LOC: LABWHC1 11:24
PROVIDERS: ATTEND Surgery
DX: Z01.812 Encounter for preprocedural laboratory examination (principal); Z01.818 Encounter for other preprocedural examination; K57.32 Diverticulitis of large intestine without perforation or abscess without bleeding
CPT/HCPCS: 36415; 80051; 85027; 93005

== ENCOUNTER 2019-10-07 10:09 | Inpatient (IN) | payer MEDICARE, BC ==
[2019-09-29 11:08] VITALS: BMI 38.3
[~2019-10-07 10:09] MED LIST changes: +DEXAMETHASONE SOD PHOSPHATE 10 MG/ML 1 ML VIAL IV ONE; -LACTATED RINGERS 1,000 ML IV SCH; +LIDOCAINE 1% 20 ML VIAL (10MG/ML) FOR IV START INTRADERMA PRN; +ONDANSETRON 4 MG/2 ML VIAL IVP ONE; +fentaNYL (PF) 50 MCG/ML 2 ML AMP IV PRN; +metroNIDAZOLE-NS PMX 500 MG in SALINE 1 100ML.BAG IVPB ONE
[2019-10-07] MEDS ORDERED: ALVIMOPAN 12 MG CAPSULE PO ONE (10:57)
[2019-10-07] MEDS ORDERED: ACETAMINOPHEN TAB 500 MG TAB PO ONE (10:57)
[2019-10-07] MEDS: LACTATED RINGERS 1,000 ML IV SCH (10:58)
[2019-10-07] MEDS ORDERED: MIDAZOLAM 2 MG/2 ML VIAL IV ONE (11:22)
[2019-10-07] MEDS ORDERED: NALOXONE 0.4 MG/ML 1 ML VIAL IV PRN (12:16)
--- NOTE | 2019-10-07 12:33 | P.GSHP ---
History of Present Illness H&P Date: 10/07/19 Chief Complaint: Diverticulitis This a 74-year-old female with history diverticula is. Patient presents today for low anterior resection. Patient aware the risks of surgery including possible colostomy, anastomotic leak, wound infection and bleeding. Past Medical History Past Medical History: Eye Disorder, GERD/Reflux, Hyperlipidemia, Hypertension, Mitral Valve Prolapse (MVP), Osteoarthritis (OA) Additional Past Medical History / Comment(s): Double vision, Bowel obstruction 2009, DDD. Leaky valve, Murmur, occ palpitations. HIATAL HERNIA, Varicose Veins, diverticulitis/abscess, Transient Global Amnesia episode x1. Raynaud's. History of Any Multi-Drug Resistant Organisms: None Reported Past Surgical History: Bowel Resection, Cholecystectomy, Hysterectomy, Joint Replacement, Orthopedic Surgery Additional Past Surgical History / Comment(s): Kristian knee replacement, rt carpal tunnel, sinus surgery, kristian CATARACTS, VARICOSE VEINS surgery, Lt great toe replacement, surgery on 3 toes left foot(removed of great toe hardware and hammer toes), RIGHT FOOT buntionectomy, Rt shoulder rotator cuff, "bleeds easily". Colonoscopy Past Anesthesia/Blood Transfusion Reactions: Family History of Problems w/ Anesthesia Additional Past Anesthesia/Blood Transfusion Reaction / Comment(s): sister-not sure what problem she had, "also has bleeding problems." Smoking Status: Former smoker - Past Family History Son(s) Family Medical History: Cancer Sister(s) Family Medical History: Cancer Father Family Medical History: Diabetes Mellitus Mother Family Medical History: No Reported History Additional Family Medical History / Comment(s): AT EARLY AGE Medications and Allergies Home Medications Medication Instructions Recorded Confirmed Type Losartan Potassium [Cozaar] 50 mg PO BID 07/12/14 10/07/19 History Omeprazole [PriLOSEC] 20 mg PO DAILY 07/12/14 10/07/19 History Acetaminophen [Tylenol Arthritis] 650 mg PO BID PRN 01/19/17 10/07/19 History Krill Oil 500 mg PO DAILY 01/19/17 10/07/19 History Multivitamins, Thera [Multivitamin 1 tab PO DAILY 01/19/17 10/07/19 History (formulary)] Loratadine [Claritin] 10 mg PO DAILY 11/10/17 10/07/19 History Ezetimibe 10 mg PO HS 04/26/18 10/07/19 History Magnesium 200 mg PO DAILY PRN 04/26/18 10/07/19 History Turmeric Root Extract [Turmeric] 500 mg PO DAILY PRN 04/26/18 10/07/19 History Cholecalciferol [Vitamin D3 (25 2,000 unit PO DAILY 03/31/19 10/07/19 History Mcg = 1000 Iu)] Metoprolol Succinate (ER) [Toprol 25 mg PO DAILY 03/31/19 10/07/19 History XL] Biotin 10,000 mcg PO DAILY 04/21/19 10/07/19 History Furosemide [Lasix] 20 mg PO DAILY PRN 04/21/19 10/07/19 History Allergies Allergy/AdvReac Type Severity Reaction Status Date / Time hydromorphone HCl Allergy Rash/Hives, Verified 10/07/19 10:35 [From Dilaudid] nausea/vomi ting Sulfa (Sulfonamide Allergy vaginal Verified 10/07/19 10:35 Antibiotics) sores codeine AdvReac Hallucinati Verified 10/07/19 10:35 ons ibuprofen [From Motrin] AdvReac Hallucinati Verified 10/07/19 10:35 ons meperidine HCl [From Demerol] AdvReac Nausea & Verified 10/07/19 10:35 Vomiting morphine AdvReac Nausea & Verified 10/07/19 10:35 Vomiting,hives [id number] Reductase AdvReac muscle Verified 10/07/19 10:35 Inhibitor cramps tramadol AdvReac nausea,dizz Verified 10/07/19 10:35 y blood thinner that was given AdvReac coughing Uncoded 10/07/19 10:35 in ER up blood clots & vaginal bleeding pain meds AdvReac nausea,dizz Uncoded 10/07/19 10:35 y Surgical - Exam Vital Signs Temp Pulse Resp BP Pulse Ox 97.4 F L 107 H 18 105/59 96 10/07/19 10:40 10/07/19 10:40 10/07/19 10:40 10/07/19 10:40 10/07/19 10:40 - General well developed, well nourished, no distress - Eyes PERRL - ENT normal pinna - Neck no masses - Respiratory normal expansion - Cardiovascular Rhythm: regular - Abdomen Abdomen: soft, non tender Assessment and Plan Assessment: History of diverticulitis. Patient will undergo low anterior resection today.
[2019-10-07] MEDS: HEPARIN SODIUM,PORCINE 5,000 UNIT/ML 1 ML VIAL SQ ONE ×2 (12:45→16:42)
[2019-10-07] MEDS ORDERED: ePHEDrine SULFATE/0.9% NACL/PF 50 MG/5 ML SYRINGE IV ONE (13:00)
[2019-10-07] MEDS ORDERED: PHENYLEPHRINE-0.9% NACL SYG 1 MG/10 ML SYRINGE ONE (13:00)
[2019-10-07] MEDS ORDERED: fentaNYL (PF) 50 MCG/ML 2 ML AMP ONE (13:00)
[2019-10-07] MEDS ORDERED: MIDAZOLAM 2 MG/2 ML VIAL ONE (13:00)
[2019-10-07] MEDS ORDERED: LIDOCAINE 1% INJ 10MG/ML (20 ML MDV) ONE (13:00)
[2019-10-07] MEDS ORDERED: ROCURONIUM BROMIDE 10 MG/ML 10 ML VIAL IV ONE (13:00)
[2019-10-07] MEDS ORDERED: PROPOFOL 10 MG/ML 20 ML VIAL IV ONE (13:00)
[2019-10-07] MEDS ORDERED: NEOSTIGMINE 1 MG/ML 10 ML VIAL ONE (13:00)
[2019-10-07] MEDS ORDERED: GLYCOPYRROLATE 0.2 MG/ML 2 ML VIAL ONE (13:00)
[2019-10-07] MEDS ORDERED: KETOROLAC 30 MG/ML 1 ML VIAL ONE (13:00)
[2019-10-07] MEDS ORDERED: SUCCINYLCHOLINE CHLORIDE 100 MG/5 ML SYR IV ONE (13:00)
[2019-10-07] MEDS ORDERED: METOCLOPRAMIDE 5 MG/ML 2 ML VIAL IVP PRN (14:24)
--- NOTE | 2019-10-07 14:24 | P.OP ---
Date of Procedure: 10/07/19 Preoperative Diagnosis: Diverticulitis Postoperative Diagnosis: Diverticulitis Adhesions Procedure(s) Performed: Lysis of extensive adhesions Low anterior section Anesthesia: KAMAR Surgeon: Brandon Ascencio Estimated Blood Loss (ml): 25 Pathology: other (Sigmoid colon) Condition: stable Disposition: PACU Description of Procedure: DESCRIPTION OF PROCEDURE: The patient was placed on the operating table in the supine position. Patient received a general anesthesia. Patient was then placed in the dorsal lithotomy position. The patient's abdomen was prepped and draped in the usual sterile fashion. Through a low midline incision, the abdomen was entered. There extensive adhesions noted. The patient a previous laparotomy scar. Approximately 25 minutes of operative time used to lyse adhesions between the small bowel and colon and abdominal wall. The Bookwalter was placed in the wound. The stomach appeared normal. The small bowel appeared normal. The liver appeared normal. The right colon and transverse colon appeared normal. On the left colon, there was an extensive diverticulosis noted. There appeared to be evidence of previous diverticular rupture with significant adhesion in the left lateral pelvic wall. This was lysed with sharp dissection. At this point a colotomy was made in the distal colon and then the anvil for the 25 mm EEA stapler was placed into the colon a suture had been attached to the spike for the anvil. The colon was divided using the JADA stapler and then the suture was grasped and the cables brought back through the staple line. The colotomy was closed with 3-0 GI silk suture. Using the Enseal device the mesentery of the sigmoid colon and rectum were divided. And then the rectum was transected with the contour stapler. The certified surgical tech/first assistant placed the EEA stapler patient's anus and then the stapler was positioned at the rectum and then the spike was driven through the anterior rectal wall. The anvil was connected to the stapler. The stapler is then closed and fired. 2 intact tissue rings were withdrawn from the stomach the stapler. Next using a high The proximal bowel was occluded and then under air insufflation the anastomosis visualized. There is no evidence of any leak of the anastomosis. At this point the dilator was withdrawn. The abdomen was irrigated there is no bleeding seen. The fascia was closed with looped #1 PDS. 2 sutures used to close the fascia. Clean instruments reduced to close the fascia. The skin was closed good. Patient top she will was sent to recovery room in stable condition.
[2019-10-07] MEDS: ROPIVACAINE 400 MG, fentaNYL (PF) 625 MCG in SODIUM CHLORIDE 0.9% 158 ML EPIDURAL PRN (14:39)
[2019-10-07 17:50] LABS: Basophils % (A) 0 %; Eosinophils % (A) 0 %; HCT 37.6 % (34.0-46.0); HGB 12.1 gm/dL (11.4-16.0); Lymphocytes # (A) 0.6 k/uL (1.0-4.8); Lymphocytes % (A) 5 %; MCH 29.7 pg (25.0-35.0); MCHC 32.3 g/dL (31.0-37.0); MCV 92.1 fL (80.0-100.0); Monocytes # (A) 0.1 k/uL (0-1.0); Monocytes % (A) 1 %; Neutrophils # (A) 11.4 k/uL (1.3-7.7); Neutrophils % (A) 93 %; Platelet Count 210 k/uL (150-450); RBC 4.09 m/uL (3.80-5.40); RDW 12.8 % (11.5-15.5); WBC 12.3 k/uL (3.8-10.6)
[2019-10-07 18:23] LABS: Calcium 8.9 mg/dL (8.4-10.2); Potassium 3.6 mmol/L (3.5-5.1)
[2019-10-07] MEDS: FAMOTIDINE 20 MG/2 ML VIAL IV SCH (20:28)
--- NOTE | 2019-10-07 21:21 | P.CONS ---
History of Present Illness - Reason for Consult Consult date: 10/07/19 Medical management Requesting physician: Brandon Ascencio - Chief Complaint Low anterior resection - History of Present Illness Consultation: This is a 74-year-old patient who follows with . Chronic stable medical conditions include hypertension, hyperlipidemia, primary osteoarthritis, chronic urinary incontinence and hiatal hernia.. Patient in March of this year had a bout of sigmoid diverticulitis with localized abscess. Patient is since then patient's had symptoms off and on. Patient today underwent low anterior resection with lysis of adhesions. Postprocedure laying bed. Pain is controlled. Has abdominal binder in place. No nausea vomiting. Family is at the bedside. Review of systems: GEN.: Tired EYES: None HEENT: None NECK: None RESPIRATORY: None CARDIOVASCULAR: None GASTROINTESTINAL: As above GENITOURINARY: None MUSCULOSKELETAL: Some joint pains LYMPHATICS: None HEMATOLOGICAL: None PSYCHIATRY: None NEUROLOGICAL: None Past medical history to include: GERD, hyperlipidemia, hypertension, osteoarthritis, Tony obstruction, arthritis, lumbar stenosis, urinary incontinence, varicose veins, acute diverticulitis Social history: Patient smoked a pack a day from age of 17 and stopped in . No alcohol. Son lives at home. Family history: Diabetes Physical examination: VITAL SIGNS: 97.7, 69, 15, 93 with 52, 93% room air GENERAL: BMI 37.8, laying bed awake a bit tired appearing. EYES: Pupils equal. Conjunctiva normal. HEENT: External appearance of nose and ears normal, oral cavity grossly normal. NECK: JVD not raised; masses not palpable. HEART: First and second heart sounds are normal; no edema. LUNGS: Respiratory rate normal; decreased breath sounds. ABDOMEN: Soft, some tenderness, binder in place, liver spleen not palpable, no masses palpable. PSYCH: Alert and oriented x3; mood and affect normal. NEUROLOGICAL: Cranial nerves grossly intact; no facial asymmetry, power and sensation grossly intact. LYMPHATICS: No lymph nodes palpable in the axilla and neck INVESTIGATIONS, reviewed in the clinical context: White count 12.3 hemoglobin 12.1 progression 3.6 creatinine 0.76 Assessment: -Low anterior resection in a patient is had a sigmoid diverticulitis with symptoms present on and off. Also had lysis of adhesions -Hyperlipidemia -Essential hypertension -Primary osteoarthritis -Chronic urinary incontinence -Hiatal hernia -Obesity BMI 37.8 Plan: Patient currently getting IV fluids. Started on clear liquid status. Pain control place. No carotid bruits in place. Care was discussed with the pat ient. Questions were answered. Thank you Dr. Ascencio Past Medical History Past Medical History: Eye Disorder, GERD/Reflux, Hyperlipidemia, Hypertension, Mitral Valve Prolapse (MVP), Osteoarthritis (OA) Additional Past Medical History / Comment(s): Double vision, Bowel obstruction 2009, DDD. Leaky valve, Murmur, occ palpitations. HIATAL HERNIA, Varicose Veins, diverticulitis/abscess, Transient Global Amnesia episode x1. Raynaud's. History of Any Multi-Drug Resistant Organisms: None Reported Past Surgical History: Bowel Resection, Cholecystectomy, Hysterectomy, Joint Replacement, Orthopedic Surgery Additional Past Surgical History / Comment(s): Jackie knee replacement, rt carpal tunnel, sinus surgery, jackie CATARACTS, VARICOSE VEINS surgery, Lt great toe replacement, surgery on 3 toes left foot(removed of great toe hardware and hammer toes), RIGHT FOOT buntionectomy, Rt shoulder rotator cuff, "bleeds easily". Colonoscopy Past Anesthesia/Blood Transfusion Reactions: Family History of Problems w/ Anesthesia Additional Past Anesthesia/Blood Transfusion Reaction / Comm: sister-not sure what problem she had, "also has bleeding problems." Past Psychological History: No Psychological Hx Reported Smoking Status: Former smoker Past Alcohol Use History: Occasional Additional Past Alcohol Use History / Comment(s): STARTED SMOKING AGE 17, SMOKED 1PPD, QUIT Past Drug Use History: None Reported - Past Family History Son(s) Family Medical History: Cancer Sister(s) Family Medical History: Cancer Father Family Medical History: Diabetes Mellitus Mother Family Medical History: No Reported History Additional Family Medical History / Comment(s): AT EARLY AGE Medications and Allergies Home Medications Medication Instructions Recorded Confirmed Type Losartan Potassium [Cozaar] 50 mg PO BID 07/12/14 10/07/19 History Omeprazole [PriLOSEC] 20 mg PO DAILY 07/12/14 10/07/19 History Acetaminophen [Tylenol Arthritis] 650 mg PO BID PRN 01/19/17 10/07/19 History Krill Oil 500 mg PO DAILY 01/19/17 10/07/19 History Multivitamins, Thera [Multivitamin 1 tab PO DAILY 01/19/17 10/07/19 History (formulary)] Loratadine [Claritin] 10 mg PO DAILY 11/10/17 10/07/19 History Ezetimibe 10 mg PO HS 04/26/18 10/07/19 History Magnesium 200 mg PO DAILY PRN 04/26/18 10/07/19 History Turmeric Root Extract [Turmeric] 500 mg PO DAILY PRN 04/26/18 10/07/19 History Cholecalciferol [Vitamin D3 (25 2,000 unit PO DAILY 03/31/19 10/07/19 History Mcg = 1000 Iu)] Metoprolol Succinate (ER) [Toprol 25 mg PO DAILY 03/31/19 10/07/19 History XL] Biotin 10,000 mcg PO DAILY 04/21/19 10/07/19 History Furosemide [Lasix] 20 mg PO DAILY PRN 04/21/19 10/07/19 History HYDROcodone/APAP 5-325MG [[place] 1 tab PO Q6HR PRN 3 Days #12 tab 10/07/19 Rx 5-325] Allergies Allergy/AdvReac Type Severity Reaction Status Date / Time hydromorphone HCl Allergy Rash/Hives, Verified 10/07/19 10:35 [From Dilaudid] nausea/vomi ting Sulfa (Sulfonamide Allergy vaginal Verified 10/07/19 10:35 Antibiotics) sores codeine AdvReac Hallucinati Verified 10/07/19 10:35 ons ibuprofen [From Motrin] AdvReac Hallucinati Verified 10/07/19 10:35 ons meperidine HCl [From Demerol] AdvReac Nausea & Verified 10/07/19 10:35 Vomiting morphine AdvReac Nausea & Verified 10/07/19 10:35 Vomiting,hives [id number]-Ieu-Zij Reductase AdvReac muscle Verified 10/07/19 10:35 Inhibitor cramps tramadol AdvReac nausea,dizz Verified 10/07/19 10:35 y blood thinner that was given AdvReac coughing Uncoded 10/07/19 10:35 in ER up blood clots & vaginal bleeding pain meds AdvReac nausea,dizz Uncoded 10/07/19 10:35 y Physical Exam Vitals: Vital Signs Temp Pulse Resp BP Pulse Ox 10/07/19 19:22 73 87/52 10/07/19 19:15 101/60 10/07/19 19:07 97.7 F 67 18 88/53 95 10/07/19 19:04 97.7 F 69 15 93/52 93 L 10/07/19 18:52 77 18 94/58 96 10/07/19 18:30 76 98/42 10/07/19 18:15 86 86/55 10/07/19 18:00 86 83/47 10/07/19 17:45 70 77/52 10/07/19 17:30 76 85/54 10/07/19 17:15 76 97/58 10/07/19 17:00 98 F 81 12 87/58 99 10/07/19 16:58 97 10/07/19 16:15 98 16 78/50 96 10/07/19 16:00 81 16 82/47 94 L 10/07/19 15:45 76 16 92/49 93 L 10/07/19 15:30 71 16 92/50 96 10/07/19 15:15 72 16 87/48 100 10/07/19 15:00 67 16 86/49 100 10/07/19 14:45 69 16 90/48 100 10/07/19 14:28 97 F L 81 16 150/68 96 10/07/19 11:35 87 16 91/52 97 10/07/19 10:40 97.4 F L 107 H 18 105/59 96 Intake and Output 10/07/19 10/07/19 10/07/19 06:59 14:59 22:59 Intake Total 1200 800 Output Total 150 Balance 1050 800 Intake: IV 1200 800 Output: Urine 100 Estimated Blood Loss 50 Other: Voiding Method Indwelling Catheter Weight 84.822 kg Results CBC & Chem 7: 10/07/19 17:30 10/07/19 17:30 Labs: Abnormal Lab Results - Last 24 Hours (Table) 10/07/19 10/07/19 Range/Units 17:30 17:30 WBC 12.3 H (3.8-10.6) k/uL Neutrophils # 11.4 H (1.3-7.7) k/uL Lymphocytes # 0.6 L (1.0-4.8) k/uL Glucose 136 H (74-99) mg/dL
[2019-10-07] MEDS: HEPARIN SODIUM,PORCINE 5,000 UNIT/ML 1 ML VIAL SQ SCH (23:06)
[2019-10-07] MEDS: D5-0.45% NACL WITH KCL 20MEQ/L 1,000 ML IV SCH (23:59)
[2019-10-08] MEDS: LACTATED RINGERS 1,000 ML IV SCH (02:54)
[2019-10-08] MEDS: D5-0.45% NACL WITH KCL 20MEQ/L 1,000 ML IV SCH ×3 (03:09→17:59)
[2019-10-08] MEDS: ALVIMOPAN 12 MG CAPSULE PO SCH ×2 (08:41→20:59)
[2019-10-08] MEDS: HEPARIN SODIUM,PORCINE 5,000 UNIT/ML 1 ML VIAL SQ SCH ×3 (08:41→23:31)
[2019-10-08] MEDS: FAMOTIDINE 20 MG/2 ML VIAL IV SCH ×2 (08:41→21:00)
[2019-10-08] MEDS ORDERED: SODIUM CHLORIDE 0.9% 1,000 ML IV ONE (09:01)
[2019-10-08 09:30] LABS: Basophils % (A) 0 %; Eosinophils % (A) 0 %; HCT 32.1 % (34.0-46.0); HGB 10.6 gm/dL (11.4-16.0); Lymphocytes % (A) 11 %; MCHC 32.9 g/dL (31.0-37.0); MCV 91.2 fL (80.0-100.0); Mean Platelet Volume 6.7; Monocytes # (A) 0.4 k/uL (0-1.0); Monocytes % (A) 5 %; Neutrophils # (A) 7.3 k/uL (1.3-7.7); Neutrophils % (A) 83 %; Platelet Count 210 k/uL (150-450); RBC 3.52 m/uL (3.80-5.40); RDW 12.7 % (11.5-15.5); WBC 8.8 k/uL (3.8-10.6)
[2019-10-08 09:39] LABS: ALT 25 U/L (9-52); AST 26 U/L (14-36); African American GFR (CKD) >90 (>60 ml/min/1.73 sqM); Albumin 3.3 g/dL (3.5-5.0); Alkaline Phosphatase 70 U/L (38-126); Anion Gap 8 mmol/L; Blood Urea Nitrogen 16 mg/dL (7-17); Calcium 8.6 mg/dL (8.4-10.2); Carbon Dioxide 24 mmol/L (22-30); Chloride 102 mmol/L (98-107); Glucose 137 mg/dL (74-99); Non-African American GFR(CKD) 84 (>60 ml/min/1.73 sqM); Potassium 4.4 mmol/L (3.5-5.1); Sodium 134 mmol/L (137-145); Total Bilirubin 0.4 mg/dL (0.2-1.3)
--- NOTE | 2019-10-08 11:03 | P.PN ---
Subjective Progress Note Date: 10/08/19 Principal diagnosis: Diverticulitis Patient feels fairly well today. Her blood pressure however was low overnight. For that reason her epidural was decreased. Pain is now 3 out of 10. Describes possibly some bloody discharge vaginally. Urine output adequate. White blood cell count 8.8, hemoglobin 10.6. No flatus or bowel movement. Objective - Vital Signs Vital signs: Vital Signs Temp 97.6 F 10/08/19 07:00 Pulse 65 10/08/19 10:57 Resp 18 10/08/19 07:00 BP 97/60 10/08/19 10:57 Pulse Ox 97 10/08/19 07:00 Intake & Output 10/07/19 10/08/19 10/08/19 18:59 06:59 18:59 Intake Total 2000 200 72.2 Output Total 150 350 Balance 1850 -150 72.2 Weight 84.822 kg Intake: IV 2000 Intake, IV Titration 72.2 Amount Ropivacaine 400 mg 72.2 fentaNYL (PF) 625 mcg In Sodium Chloride 0.9% 158 ml @ Per Protocol EPIDURAL .Q0M PRN Rx#: [id number] Oral 200 Output: Urine 100 350 Estimated Blood Loss 50 Other: Voiding Method Indwelling Catheter Indwelling Catheter Indwelling Catheter - Exam Abdomen: Soft, nondistended, mild tenderness, dressing clean and dry - Labs CBC & Chem 7: 10/08/19 09:09 10/08/19 09:09 Labs: Abnormal Lab Results - Last 24 Hours (Table) 10/07/19 10/07/19 10/08/19 Range/Units 17:30 17:30 09:09 WBC 12.3 H (3.8-10.6) k/uL RBC 3.52 L (3.80-5.40) m/uL Hgb 10.6 L (11.4-16.0) gm/dL Hct 32.1 L (34.0-46.0) % Neutrophils # 11.4 H (1.3-7.7) k/uL Lymphocytes # 0.6 L (1.0-4.8) k/uL Sodium (137-145) mmol/L Glucose 136 H (74-99) mg/dL Total Protein (6.3-8.2) g/dL Albumin (3.5-5.0) g/dL 10/08/19 Range/Units 09:09 WBC (3.8-10.6) k/uL RBC (3.80-5.40) m/uL Hgb (11.4-16.0) gm/dL Hct (34.0-46.0) % Neutrophils # (1.3-7.7) k/uL Lymphocytes # (1.0-4.8) k/uL Sodium 134 L (137-145) mmol/L Glucose 137 H (74-99) mg/dL Total Protein 6.0 L (6.3-8.2) g/dL Albumin 3.3 L (3.5-5.0) g/dL Assessment and Plan (1) Diverticulitis of intestine with abscess Narrative/Plan: Patient doing relatively well. Continue monitoring blood pressure. 1 L bolus ordered. Keep on clears for now. Recheck labs tomorrow. Gradually increase activity as tolerated. Current Visit: No Status: Acute Code(s): K57.80 - DVTRCLI OF INTEST, PART UNSP, W PERF AND ABSCESS W/O BLEED SNOMED Code(s): 650953282
--- NOTE | 2019-10-08 14:43 | XR ---
EXAMINATION TYPE: XR chest 1V portable DATE OF EXAM: 10/08/2019 COMPARISON: NONE HISTORY: Difficulty in breathing TECHNIQUE: Single frontal view of the chest is obtained. FINDINGS: There is no focal air space opacity, pleural effusion, or pneumothorax seen. The cardiac silhouette size is within normal limits. The osseous structures are intact. IMPRESSION: No acute process.
--- NOTE | 2019-10-08 16:46 | P.PN ---
Progress Note - Text 10/08 1615am 74-year-old female's status post low anterior resection by Dr. Ascencio. Patient has an epidural catheter for postop pain control with solution running at 4 mL an hour, patient has had low blood pressure, I had cut the epidural rate down but not back up to 4 mL an hour . She is hemodynamically stable. She has a VAS of 2 with no motor or sensory deficit Plan to continue epidural infusion
--- NOTE | 2019-10-08 18:47 | PN ---
PROGRESS NOTE DATE OF SERVICE: 10/08/2019 This 74-year-old woman who was admitted after low anterior resection for sigmoid diverticulitis, is being closely monitored. The patient was found to be hypotensive. Patient received bolus fluids. The blood pressure came up to 97/60. There is no chest pain. No history of palpitations, headache loss of consciousness or seizures. The hemoglobin on admission was 12.1. Today it is 10.6. Sodium 134. Surgery is following the patient closely. PAST MEDICAL HISTORY: Reviewed. REVIEW OF SYSTEMS: Cardiovascular as mentioned earlier. Gastrointestinal: As mentioned earlier. no dysuria or hematuria. Nervous system: No numbness or weakness. CURRENT MEDICATIONS: Reviewed and include: 1. Entereg 12 mg p.o. b.i.d. 2. Pepcid 20 mg IV b.i.d. 3. Heparin subcu q.8h. 4. Reglan 10 mg q.6h p.r.n. 5. Narcan. 6. Zofran. 7. Potassium chloride. 8. IV fluids. PHYSICAL EXAM: Patient is alert, oriented x3. The pulse is 63, blood pressure 97/57, respiration 18, temperature 97.8, pulse ox 98% on room air. HEENT: Conjunctivae normal. Oral mucosa moist. NECK: No jugular venous distention. No carotid bruit. No lymph node enlargement. CARDIOVASCULAR: S1, S2. No S3, no S4. RESPIRATORY: Breath sounds diminished in the bases. A few scattered rhonchi. No crackles. ABDOMEN: Soft, status post surgery. LEGS: No edema. No swelling. NERVOUS SYSTEM: Higher functions as mentioned earlier. Moves all 4 limbs. No focal motor or sensory deficits. LYMPHATICS: No lymph nodes palpable in the neck, axillae or groin. SKIN: No ulcer, no rash and no bleeding. JOINTS: No active deforming arthropathy. LABS: WBC 8.8, hemoglobin 10.6, sodium 135. ASSESSMENT: 1. Status post low anterior resection for sigmoid diverticulitis. 2. Postoperative hypotension possibly secondary to hypovolemia. 3. Hyponatremia. 4. Anemia of chronic disease. 5. History of gastroesophageal reflux disease. 6. History of hypertension. 7. History of mitral valve prolapse. 8. History of degenerative joint disease. 9. History of bowel obstruction. 10.History of hiatal hernia. 11.History of bowel resection. 12.History of cholecystectomy. 13.Remote history of nicotine dependence. 14.Obesity with body mass of 37.8.. 15.FULL CODE. RECOMMENDATION: This 74-year-old woman who presented with multiple medical issues, at this time, I recommend to continue current medications, management and symptomatic treatment. Blood pressure is still rather low at this time. I recommend continue with IV fluids at least 125 mL/hour. Obtain a chest x-ray to rule out the possibility of any fluid overload. Otherwise, set of troponins, EKG and cardiac workup. Basic cardiac workup as well. Repeat labs will be ordered. Continue the rest of medications. Hold off the blood pressure medications so far until the blood pressure stabilized. We will closely follow with surgery. Further recommendations to follow. JOSÉ MIGUEL / XINN: [id number] /
[2019-10-09] MEDS: D5-0.45% NACL WITH KCL 20MEQ/L 1,000 ML IV SCH ×3 (02:13→19:31)
[2019-10-09 07:04] LABS: Basophils % (A) 0 %; Eosinophils # (A) 0.1 k/uL (0-0.7); Eosinophils % (A) 2 %; HGB 9.9 gm/dL (11.4-16.0); Lymphocytes # (A) 1.6 k/uL (1.0-4.8); Lymphocytes % (A) 30 %; MCH 29.9 pg (25.0-35.0); MCHC 32.9 g/dL (31.0-37.0); MCV 90.7 fL (80.0-100.0); Mean Platelet Volume 6.7; Monocytes # (A) 0.3 k/uL (0-1.0); Monocytes % (A) 6 %; Neutrophils # (A) 3.2 k/uL (1.3-7.7); Neutrophils % (A) 61 %; Platelet Count 162 k/uL (150-450); RDW 12.7 % (11.5-15.5); WBC 5.3 k/uL (3.8-10.6)
[2019-10-09 07:11] LABS: African American GFR (CKD) >90 (>60 ml/min/1.73 sqM); Anion Gap 4 mmol/L; Blood Urea Nitrogen 6 mg/dL (7-17); Calcium 8.4 mg/dL (8.4-10.2); Carbon Dioxide 26 mmol/L (22-30); Chloride 109 mmol/L (98-107); Glucose 91 mg/dL (74-99); Non-African American GFR(CKD) >90 (>60 ml/min/1.73 sqM); Potassium 4.2 mmol/L (3.5-5.1); Sodium 139 mmol/L (137-145)
[2019-10-09] MEDS: ALVIMOPAN 12 MG CAPSULE PO SCH (08:03)
[2019-10-09] MEDS: HEPARIN SODIUM,PORCINE 5,000 UNIT/ML 1 ML VIAL SQ SCH ×3 (08:04→23:53)
[2019-10-09] MEDS: FAMOTIDINE 20 MG/2 ML VIAL IV SCH ×2 (08:04→20:19)
--- NOTE | 2019-10-09 10:31 | P.PN ---
Subjective Progress Note Date: 10/09/19 Principal diagnosis: Diverticulitis Patient doing well today. She did have a bowel movement. White blood cell count is normal. Tolerating clears. Blood pressure improved. Good urine output. Objective - Vital Signs Vital signs: Vital Signs Temp 98.5 F 10/09/19 07:00 Pulse 84 10/09/19 07:00 Resp 18 10/09/19 07:00 BP 109/71 10/09/19 07:00 Pulse Ox 98 10/09/19 07:00 Intake & Output 10/08/19 10/09/19 10/09/19 18:59 06:59 18:59 Intake Total 75.9 480 Output Total 1675 3000 650 Balance -1599.1 -5350 -650 Intake: Intake, IV Titration 75.9 Amount Ropivacaine 400 mg 75.9 fentaNYL (PF) 625 mcg In Sodium Chloride 0.9% 158 ml @ Per Protocol EPIDURAL .Q0M PRN Rx#: [id number] Oral 480 Output: Urine 1675 3000 650 Other: Voiding Method Indwelling Catheter Indwelling Catheter # Voids 1 # Bowel Movements 1 - Exam Abdomen: Soft, nondistended, non-tender, small amount of serosanguineous drainage inferiorly - Labs CBC & Chem 7: 10/09/19 06:46 10/09/19 06:46 Labs: Abnormal Lab Results - Last 24 Hours (Table) 10/09/19 10/09/19 Range/Units 06:46 06:46 RBC 3.30 L (3.80-5.40) m/uL Hgb 9.9 L (11.4-16.0) gm/dL Hct 30.0 L (34.0-46.0) % Chloride 109 H (98-107) mmol/L BUN 6 L (7-17) mg/dL Assessment and Plan (1) Diverticulitis of intestine with abscess Narrative/Plan: Patient doing better today. Will advance to full liquids. Keep Florian and epidural today. Ambulate. Current Visit: No Status: Acute Code(s): K57.80 - DVTRCLI OF INTEST, PART UNSP, W PERF AND ABSCESS W/O BLEED SNOMED Code(s): 170760025
--- NOTE | 2019-10-09 15:40 | PN ---
PROGRESS NOTE DATE OF SERVICE: 10/09/2019 This 74-year-old woman who was admitted after low anterior resection, is improving significantly. Patient had postoperative hypotension which responded to IV fluids. No chest pain. No palpitations. No fever. EXAM: Alert and oriented x3. Pulse 84, blood pressure 109/71, respirations 18. Temperature 98.4, pulse ox 98% on room air. HEENT: Conjunctivae normal. Oral mucosa moist. NECK: No JVD. CARDIOVASCULAR: S1, S2. RESPIRATIONS: Breath sounds diminished in the bases. No rhonchi. No crackles. ABDOMEN: Soft, status post surgery. LEGS: No edema. No swelling. CENTRAL NERVOUS SYSTEM: No focal deficits. LABS: WBC 5.3, hemoglobin 9.9. Otherwise, BUN, creatinine noted. ASSESSMENT: 1. Status post low anterior resection for sigmoid diverticulitis. 2. Postoperative hypotension secondary to hypovolemia, improving. 3. Hyponatremia. 4. History of anemia, of chronic disease. 5. History of gastroesophageal reflux disease. 6. Hypertension. 7. History of mitral valve prolapse. 8. History of degenerative joint disease. 9. History of bowel obstruction. 10.History of hiatal hernia. 11.History of bowel resection. 12.History of cholecystectomy. 13.Remote history of nicotine dependence. 14.Obesity with body mass index of 37.8. 15.FULL CODE. RECOMMENDATIONS AND DISCUSSION: In this 74-year-old woman who presented with multiple complex medical issues, we will monitor the patient closely, continue the current medications, management and symptomatic treatment. Continue IV fluids. Monitor blood pressure closely. Continue the rest of medications. DVT prophylaxis. Further recommendations to follow. MMODL / IJN: [id number] /
--- NOTE | 2019-10-09 15:45 | P.PN ---
Progress Note - Text 10/09 1512 74-year-old female status post low anterior resection by Dr. Ascencio. Patient seen and evaluated for pain control with the solution running at 7 mL an hour with a VAS of 3. No motor or sensory deficit noted. Hemodynamically stable doing well plan to continue epidural and DC in a.m.
[2019-10-09] MEDS: ROPIVACAINE 400 MG, fentaNYL (PF) 625 MCG in SODIUM CHLORIDE 0.9% 158 ML EPIDURAL PRN (16:50)
[2019-10-10] MEDS: D5-0.45% NACL WITH KCL 20MEQ/L 1,000 ML IV SCH ×3 (05:14→19:20)
[2019-10-10] MEDS: HEPARIN SODIUM,PORCINE 5,000 UNIT/ML 1 ML VIAL SQ SCH ×3 (07:04→22:32)
--- NOTE | 2019-10-10 07:13 | P.PN ---
Progress Note - Text 10/10 645am 74-year-old female status post low anterior resection by Dr. Ascencio. Patient has an epidural catheter for postop pain control with the solution running at 7 mL an hour with a VAS of 2. No motor or sensory deficits noted. Plan to DC epidural morning and the nurse was informed
[2019-10-10 07:49] LABS: Basophils % (A) 1 %; Eosinophils # (A) 0.2 k/uL (0-0.7); Eosinophils % (A) 2 %; HCT 34.4 % (34.0-46.0); HGB 11.2 gm/dL (11.4-16.0); Lymphocytes # (A) 1.4 k/uL (1.0-4.8); Lymphocytes % (A) 20 %; MCH 29.9 pg (25.0-35.0); MCHC 32.6 g/dL (31.0-37.0); MCV 91.5 fL (80.0-100.0); Mean Platelet Volume 6.9; Monocytes # (A) 0.5 k/uL (0-1.0); Monocytes % (A) 7 %; Neutrophils % (A) 69 %; Platelet Count 197 k/uL (150-450); RBC 3.76 m/uL (3.80-5.40); RDW 12.8 % (11.5-15.5); WBC 7.3 k/uL (3.8-10.6)
[2019-10-10 07:56] LABS: African American GFR (CKD) >90 (>60 ml/min/1.73 sqM); Anion Gap 6 mmol/L; Blood Urea Nitrogen 3 mg/dL (7-17); Calcium 8.6 mg/dL (8.4-10.2); Carbon Dioxide 29 mmol/L (22-30); Chloride 102 mmol/L (98-107); Glucose 92 mg/dL (74-99); Non-African American GFR(CKD) 87 (>60 ml/min/1.73 sqM); Potassium 4.3 mmol/L (3.5-5.1); Sodium 137 mmol/L (137-145)
[2019-10-10] MEDS: FAMOTIDINE 20 MG/2 ML VIAL IV SCH (08:11)
[2019-10-10] MEDS: ONDANSETRON 4 MG/2 ML VIAL IVP PRN ×2 (11:44→19:20)
[2019-10-10] MEDS ORDERED: METOPROLOL SUCCINATE (ER) 25 MG TAB.ER.24H PO SCH (12:00)
[2019-10-10] MEDS: ACETAMINOPHEN TAB 325 MG TAB PO PRN ×2 (12:28→17:30)
--- NOTE | 2019-10-10 14:19 | P.PN ---
Subjective Progress Note Date: 10/10/19 CHIEF COMPLAINT: Diverticulitis HISTORY OF PRESENT ILLNESS: Patient is status post low anterior resection and lysis of extensive adhesions performed on 10/07/2019. Patient examined this morning at the bedside. Epidural is infusing at 7 mL an hour. Patient denies abdominal pain. She is tolerating liquid diet without nausea or vomiting. She is passing flatus. Reports bowel movement yesterday. PHYSICAL EXAM: VITAL SIGNS: Reviewed. GENERAL: Well-developed in no acute distress. HEENT: No sclera icterus. Extraocular movements grossly intact. Moist buccal mucosa. Head is atraumatic, normocephalic. ABDOMEN: Soft. Nondistended. Nontender. Dressing clean dry and intact. NEUROLOGIC: Alert and oriented. Cranial nerves II through XII grossly intact. ASSESSMENT: 1. History of diverticulitis, status post low anterior resection PLAN: 1. Discontinue epidural. Oral narcotics ordered. Zofran PRN as patient reports nausea with narcotics 2. Discontinue short catheter 3. Advance diet 4. Increase activity as tolerated 5. Incentive spirometry 6. Patient with borderline hypotension this AM with SBP in the 90s. Patient with increasing HR. She usually takes Toprol at home. Will plan to resume tomorrow if BP tolerates, anticipate BP will improve after epidural is DC. Nurse practitioner note has been reviewed by physician. Signing provider agrees with the documented findings, assessment, and plan of care. Objective - Vital Signs Vital signs: Vital Signs Temp 98.9 F 10/10/19 07:00 Pulse 101 H 10/10/19 07:00 Resp 17 10/10/19 07:00 BP 120/75 10/10/19 12:10 Pulse Ox 91 L 10/10/19 12:10 Intake & Output 10/09/19 10/10/19 10/10/19 18:59 06:59 18:59 Intake Total 124.248 393 7848 Output Total 2450 1500 Balance -2325.900 -1020 1280 Intake: Intake, IV Titration 124.100 800 Amount D5-0.45% NaCl with KCl 800 20Meq/l 1,000 ml @ 100 mls/hr IV .Q10H [facility] Rx#: [id number] Ropivacaine 400 mg 124.100 fentaNYL (PF) 625 mcg In Sodium Chloride 0.9% 158 ml @ Per Protocol EPIDURAL .Q0M PRN Rx#: [id number] Oral 480 480 Output: Urine 2450 1500 Other: Voiding Method Indwelling Catheter Indwelling Catheter # Voids 1 - Labs CBC & Chem 7: 10/10/19 07:17 10/10/19 07:17 Labs: Abnormal Lab Results - Last 24 Hours (Table) 10/10/19 10/10/19 Range/Units 07:17 07:17 RBC 3.76 L (3.80-5.40) m/uL Hgb 11.2 L (11.4-16.0) gm/dL BUN 3 L (7-17) mg/dL
[2019-10-10] MEDS: HYDROmorphone 0.5 MG/0.5 ML SYRINGE IVP PRN ×2 (14:44→19:19)
--- NOTE | 2019-10-10 15:14 | PN ---
PROGRESS NOTE DATE OF SERVICE: 10/10/2019 This is a 74-year-old woman who was admitted after low anterior resection sigmoid diverticulitis, is being is being closely monitored at this time. The patient has some relative hypotension. Patient complains of dizziness, orthostatic dizziness at this time. No chest pain. No palpitations. No fever. PHYSICAL EXAM: Alert and oriented x3. Pulse 101, blood pressure 107/75, respiration 17, temperature is 98.9, pulse ox 97% on room air skin: HEENT: Conjunctivae normal. NECK: No jugular venous distension. CARDIOVASCULAR: S1, S2, muffled. RESPIRATORY: Breath sounds diminished at the bases, no rhonchi, no crackles. ABDOMEN: Soft, nontender. LEGS: No edema, no swelling. NERVOUS SYSTEM: No focal deficits. LABS: WBC 7.2, hemoglobin 11.2. ASSESSMENT: 1. Status post low anterior resection for sigmoid diverticulitis. 2. Postoperative hypotension secondary to hypovolemia, possibly improving. 3. Hyponatremia. 4. History of anemia of chronic disease. 5. History of gastroesophageal reflux disease. 6. Hypertension history. 7. History of mitral valve prolapse. 8. History of degenerative joint disease. 9. History of bowel obstruction. 10.History of hiatal hernia. 11.History of bowel resection. 12.History of cholecystectomy. 13.Remote history of nicotine dependence. 14.Obesity with body mass index of 37.8. 15.FULL CODE. RECOMMENDATION: Continue current management and continue symptomatic treatment. Hold off the antihypertensive medications for now. Continue to monitor orthostatic vitals. The troponins are noted. I would also recommend a D-dimer and if D-dimer is elevated, a CT angio of the chest also. Will continue to monitor, further recommendations to follow. MMODL / IJN: [id number] /
[2019-10-10] MEDS: DEXAMETHASONE SOD PHOSPHATE 4 MG/ML 1 ML VIAL IV SCH ×2 (17:30→22:32)
[2019-10-10] MEDS: FAMOTIDINE 20 MG TAB PO SCH (19:20)
[2019-10-11] MEDS ORDERED: DEXAMETHASONE SOD PHOSPHATE 4 MG/ML 1 ML VIAL ONE (01:23)
[2019-10-11] MEDS ORDERED: HYDROmorphone 0.5 MG/0.5 ML SYRINGE ONE ×2 (01:23)
[2019-10-11] MEDS ORDERED: ONDANSETRON 4 MG/2 ML VIAL ONE ×2 (01:23)
[2019-10-11] MEDS: DEXAMETHASONE SOD PHOSPHATE 4 MG/ML 1 ML VIAL IV SCH ×2 (05:54→12:14)
[2019-10-11 07:22] VITALS: RESP 15
[2019-10-11] MEDS: FAMOTIDINE 20 MG TAB PO SCH ×2 (08:06→16:29)
[2019-10-11] MEDS: HEPARIN SODIUM,PORCINE 5,000 UNIT/ML 1 ML VIAL SQ SCH ×3 (08:07→23:24)
[2019-10-11] MEDS: D5-0.45% NACL WITH KCL 20MEQ/L 1,000 ML IV SCH (08:07)
[2019-10-11 08:27] LABS: African American GFR (CKD) >90 (>60 ml/min/1.73 sqM); Anion Gap 7 mmol/L; Blood Urea Nitrogen 4 mg/dL (7-17); Calcium 9.2 mg/dL (8.4-10.2); Carbon Dioxide 28 mmol/L (22-30); Chloride 101 mmol/L (98-107); Glucose 139 mg/dL (74-99); Non-African American GFR(CKD) >90 (>60 ml/min/1.73 sqM); Potassium 4.4 mmol/L (3.5-5.1); Sodium 136 mmol/L (137-145)
[2019-10-11] MEDS ORDERED: HYDROcodone/APAP 5-325MG 1 EACH TAB PO PRN (11:13)
--- NOTE | 2019-10-11 13:51 | P.PN ---
Subjective Progress Note Date: 10/11/19 CHIEF COMPLAINT: Diverticulitis HISTORY OF PRESENT ILLNESS: Patient is status post low anterior resection and lysis of extensive adhesions performed on 10/07/2019. Patient is tolerating diet. Denies nausea or vomiting. She is passing flatus and bowel movement. Patient is currently receiving IV Dilaudid for pain control. PHYSICAL EXAM: VITAL SIGNS: Reviewed. GENERAL: Well-developed in no acute distress. HEENT: No sclera icterus. Extraocular movements grossly intact. Moist buccal mucosa. Head is atraumatic, normocephalic. ABDOMEN: Soft. Nondistended. Nontender. Dressing clean dry and intact. NEUROLOGIC: Alert and oriented. Cranial nerves II through XII grossly intact. ASSESSMENT: 1. History of diverticulitis, status post low anterior resection 2. Hypotension, secondary to epidural infusion, resolved since epidural discontinued, a potential outcome of epidural infusion PLAN: -Discontinue Dilaudid. [place] or Tylenol for pain -Continue diet as tolerated -Incentive spirometry -Increase activity as tolerated -Resume Toprol tomorrow as BP has been stable -Patient states she is not ready to be discharged home today. Will DC patient home tomorrow morning Nurse practitioner note has been reviewed by physician. Signing provider agrees with the documented findings, assessment, and plan of care. Objective - Vital Signs Vital signs: Vital Signs Temp 97.6 F 10/11/19 07:00 Pulse 63 10/11/19 07:00 Resp 15 10/11/19 07:00 BP 129/68 10/11/19 07:00 Pulse Ox 96 10/11/19 07:00 Intake & Output 10/10/19 10/11/19 10/11/19 18:59 06:59 18:59 Intake Total 1280 50 Balance 1280 50 Intake: Intake, IV Titration 800 Amount D5-0.45% NaCl with KCl 800 20Meq/l 1,000 ml @ 100 mls/hr IV .Q10H [facility] Rx#: [id number] Oral 480 50 Other: Voiding Method Toilet Toilet # Voids 1 1 # Emeses 1 - Labs CBC & Chem 7: 10/10/19 07:17 10/11/19 07:40 Labs: Abnormal Lab Results - Last 24 Hours (Table) 10/10/19 10/11/19 Range/Units 14:42 07:40 D-Dimer 2.57 H (<0.60) mg/L FEU Sodium 136 L (137-145) mmol/L BUN 4 L (7-17) mg/dL Creatinine 0.50 L (0.52-1.04) mg/dL Glucose 139 H (74-99) mg/dL
[2019-10-11] MEDS ORDERED: MAG HYDROX/AL HYDROX/SIMETH 30 ML CUP PO PRN (15:18)
[2019-10-11] MEDS: ACETAMINOPHEN TAB 325 MG TAB PO PRN ×2 (18:00→23:24)
--- NOTE | 2019-10-11 19:10 | PN ---
PROGRESS NOTE DATE OF SERVICE: 10/11/2019. This 74-year-old woman who was admitted after low anterior resection, is improving significantly. Blood pressure is stabilized. No chest pain. No palpitations. No fever. PHYSICAL EXAM: Alert and oriented times three. Pulse is 77. Blood pressure 130/75, respirations 15, temperature 97.9, pulse ox 98% on room air. HEENT: Conjunctivae normal. NECK: No JVD. CARDIOVASCULAR: S1, S2 muffled. RESPIRATORY: Breath sounds diminished in the bases. No rhonchi. No crackles. ABDOMEN: Soft, status post surgery. LEGS are no edema. No swelling. CENTRAL NERVOUS SYSTEM: No focal deficits. LABS: WBC 7.3, hemoglobin 11.2. D-dimer is 2.75. ASSESSMENT: 1. Status post low anterior resection for sigmoid diverticulitis. 2. Postoperative hypotension secondary to hypovolemia improved. 3. Hyponatremia. 4. History of anemia of chronic disease. 5. Gastroesophageal reflux disease. 6. Hypertension history. 7. History of mitral valve prolapse. 8. History of degenerative joint disease. 9. History of bowel obstruction. 10.History of hiatal hernia. 11.History of bowel resection. 12.History of cholecystectomy. 13.Remote history of nicotine dependence. 14.Obesity with body mass index of 37.8. 15.FULL CODE. RECOMMENDATIONS AND DISCUSSION: Recommend to continue current medications, continue with monitoring, management and symptomatic treatment. Otherwise, at this time, I would recommend to hold off the blood pressure medications for now and initiate blood pressure medication at the time of discharge and continue to monitor in the outpatient setting. Further recommendations to follow. MMODL / IJN: [id number] /
[2019-10-12] MEDS: FAMOTIDINE 20 MG TAB PO SCH (04:55)
[2019-10-12] MEDS: ACETAMINOPHEN TAB 325 MG TAB PO PRN ×2 (04:58→09:33)
[2019-10-12 07:41] VITALS: BP 144/75; PULSE 75; TEMP 97.3
[2019-10-12] MEDS: HEPARIN SODIUM,PORCINE 5,000 UNIT/ML 1 ML VIAL SQ SCH (08:02)
[2019-10-12] MEDS ORDERED: METOPROLOL SUCCINATE (ER) 25 MG TAB.ER.24H PO SCH (09:00)
--- NOTE | 2019-10-12 09:50 | P.DS ---
Providers Date of admission: 10/07/19 10:09 Expected date of discharge: 10/12/19 Attending physician: Brandon Ascencio Consults: 10/07/19 14:24 Consult Physician Routine Consulting Provider: Simeon Small Consult Reason/Comments: Medical management Do you want consulting provider notified?: Yes Primary care physician: Rodney Joseph Hospital Course: 74-year-old female who underwent low anterior resection and lysis of extensive adhesions performed on 10/07/[address] Ascencio. Patient is doing well postoperatively without any immediate complications. Pain is controlled on oral medications. She is tolerating diet without nausea or vomiting. Passing flatus and having bowel movements. Vital signs have been stable. She is stable for discharge home today. Please see EMR for further hospital course details. Discharge Diagnosis: 1. History of diverticulitis, status post low anterior resection 2. Hypotension, secondary to epidural infusion, resolved since epidural discontinued, a potential outcome of epidural infusion Nurse practitioner note has been reviewed by physician. Signing provider agrees with the documented findings, assessment, and plan of care. Plan - Discharge Summary Discharge Rx Participant: No New Discharge Prescriptions: New HYDROcodone/APAP 5-325MG [[facility] 5-325] 1 tab PO Q6HR PRN 3 Days #12 tab PRN Reason: Pain Ondansetron Odt [Zofran Odt] 4 mg PO Q8HR PRN #9 tab PRN Reason: Nausea No Action Losartan Potassium [Cozaar] 50 mg PO BID Omeprazole [PriLOSEC] 20 mg PO DAILY Multivitamins, Thera [Multivitamin (formulary)] 1 tab PO DAILY Krill Oil 500 mg PO DAILY Acetaminophen [Tylenol Arthritis] 650 mg PO BID PRN PRN Reason: Pain Loratadine [Claritin] 10 mg PO DAILY Turmeric Root Extract [Turmeric] 500 mg PO DAILY PRN PRN Reason: TAKES OCCASIONALLY Magnesium 200 mg PO DAILY PRN PRN Reason: TAKES OCCASIONALLY Ezetimibe 10 mg PO HS Metoprolol Succinate (ER) [Toprol XL] 25 mg PO DAILY Cholecalciferol [Vitamin D3 (25 Mcg = 1000 Iu)] 2,000 unit PO DAILY Biotin 10,000 mcg PO DAILY Furosemide [Lasix] 20 mg PO DAILY PRN PRN Reason: Edema Discharge Medication List Losartan Potassium [Cozaar] 50 mg PO BID 07/12/14 [History] Omeprazole [PriLOSEC] 20 mg PO DAILY 07/12/14 [History] Acetaminophen [Tylenol Arthritis] 650 mg PO BID PRN 01/19/17 [History] Krill Oil 500 mg PO DAILY 01/19/17 [History] Multivitamins, Thera [Multivitamin (formulary)] 1 tab PO DAILY 01/19/17 [History] Loratadine [Claritin] 10 mg PO DAILY 11/10/17 [History] Ezetimibe 10 mg PO HS 04/26/18 [History] Magnesium 200 mg PO DAILY PRN 04/26/18 [History] Turmeric Root Extract [Turmeric] 500 mg PO DAILY PRN 04/26/18 [History] Cholecalciferol [Vitamin D3 (25 Mcg = 1000 Iu)] 2,000 unit PO DAILY 03/31/19 [History] Metoprolol Succinate (ER) [Toprol XL] 25 mg PO DAILY 03/31/19 [History] Biotin 10,000 mcg PO DAILY 04/21/19 [History] Furosemide [Lasix] 20 mg PO DAILY PRN 04/21/19 [History] HYDROcodone/APAP 5-325MG [[facility] 5-325] 1 tab PO Q6HR PRN 3 Days #12 tab 10/07/19 [Rx] Ondansetron Odt [Zofran Odt] 4 mg PO Q8HR PRN #9 tab 10/12/19 [Rx] Follow up Appointment(s)/Referral(s): Brandon Ascencio MD [STAFF PHYSICIAN] - 1 Week Activity/Diet/Wound Care/Special Instructions: No driving while taking [facility] No lifting over 10 pounds You may shower. No soaking or tub baths Very light activity until you are reevaluated at your follow up appointment with your surgeon
== END 2019-10-12 10:53 | disposition home or self-care (01) | DRG 330 ==
LOC: 2ORMAIN 10:09 → 4SSUR 16:36
PROVIDERS: ADMIT Surgery; ATTEND Surgery
DX: K57.20 Diverticulitis of large intestine with perforation and abscess without bleeding (principal); E87.1 Hypo-osmolality and hyponatremia; D63.8 Anemia in other chronic diseases classified elsewhere; E66.9 Obesity, unspecified; E78.5 Hyperlipidemia, unspecified; E86.1 Hypovolemia; I10 Essential (primary) hypertension; I34.1 Nonrheumatic mitral (valve) prolapse; I73.00 Raynaud's syndrome without gangrene; I95.89 Other hypotension; K21.9 Gastro-esophageal reflux disease without esophagitis; K66.0 Peritoneal adhesions (postprocedural) (postinfection); M19.91 Primary osteoarthritis, unspecified site; R32 Unspecified urinary incontinence; Z68.37 Body mass index [BMI] 37.0-37.9, adult; Z79.899 Other long term (current) drug therapy; Z83.3 Family history of diabetes mellitus; Z87.891 Personal history of nicotine dependence; Z90.49 Acquired absence of other specified parts of digestive tract; Z90.710 Acquired absence of both cervix and uterus; Z96.653 Presence of artificial knee joint, bilateral; Z98.42 Cataract extraction status, left eye; Z98.41 Cataract extraction status, right eye; Z88.6 Allergy status to analgesic agent; Z88.5 Allergy status to narcotic agent; Z88.2 Allergy status to sulfonamides
CPT/HCPCS: 71045; 80048; 80053; 84484; 85025; 85379; 86850; 86900; 86901; 88307; 93005

== ENCOUNTER → 2020-10-02 | Outpatient (CLI) | payer MEDICARE, BC ==
--- NOTE | 2020-10-03 08:52 | BD ---
EXAMINATION TYPE: Axial Bone Density DATE OF EXAM: 10/02/2020 COMPARISON: 09/15/2012 CLINICAL HISTORY: Height: 59 IN Weight: 196 LBS RISK FACTORS HISTORY OF: Family History of Osteoporosis: SISTERS X 2 Active: YES Diet low in dairy products/other sources of calcium: YES Postmenopausal woman: TOTAL HYST AGE 45 Take estrogen and/or progesterone medications: NOT NOW How lon YEARS Lost more than 2 inches in height since high school: YES 3" MEDICATIONS: Additional Medications: VIT D, BIOTIN, MULTI VIT, OMEPRAZOLE, LOSARTAN, METOPROLOL, ZETIA, TYLENOL AR THRITIS EXAM MEASUREMENTS: Bone mineral densitometry was performed using the [employer] System. Bone mineral density as measured about the Lumbar spine is: ----- L1-L4(G/cm2): 1.294 T Score Values are as follows: ----- L2: 0.6 ----- L3: 1.4 ----- L4: 0.3 ----- L1-L4: 1.0 Bone mineral density has: Decreased -1.9% since study of: 09/15/2012 Bone mineral density about the R hip (g/cm2): 0.866 Bone mineral density about the L hip (g/cm2): 0.740 T Score values are as follows: -----R Neck: -1.2 -----L Neck: -2.1 -----R Total: -0.5 -----L Total: -0.9 Bone mineral density has: Decreased -11.2% since study of: 09/15/2012 IMPRESSION: No evidence for osteoporosis or osteopenia. NOTE: T-SCORE=SD OF THE YOUNG ADULT MEAN.
--- NOTE | 2020-10-03 09:52 | MM ---
Reason for exam: screening (asymptomatic). Last mammogram was performed 1 year and 7 months ago. History: Patient is postmenopausal. Family history of breast cancer in paternal aunt at age 50. Benign right mammotome panel of the right breast, January 06, 2012. Cancelled Right Mammotome of the right breast, September 09, 2011. Took hormonal contraceptives for 20 years. Took estrogen for 7 years. Physical Findings: A clinical breast exam by your physician is recommended on an annual basis and results should be correlated with mammographic findings. MG 3D Screening Mammo W/Cad Bilateral CC and MLO view(s) were taken. Prior study comparison: February 28, 2019, bilateral MG 3d screening mammo w/cad. February 04, 2018, bilateral MG 3d screening mammo w/cad. There are scattered fibroglandular densities. There is no discrete abnormality. No significant changes when compared with prior studies. ASSESSMENT: Negative, BI-RAD 1 RECOMMENDATION: Routine screening mammogram of both breasts in 1 year.
== END | disposition home or self-care (01) ==
LOC: RADMAMWWP 16:00
PROVIDERS: ATTEND Family Medicine
DX: Z12.31 Encounter for screening mammogram for malignant neoplasm of breast (principal); Z13.820 Encounter for screening for osteoporosis; M89.9 Disorder of bone, unspecified
CPT/HCPCS: 77063; 77067; 77080

== ENCOUNTER → 2021-04-02 | Outpatient (CLI) | payer MEDICARE, BC ==
--- NOTE | 2021-04-02 10:55 | US ---
EXAMINATION TYPE: US abdomen limited DATE OF EXAM: 04/02/2021 COMPARISON: 08/14/2011 03/31/2019 CT abdomen and pelvis history 03/31/2019 CLINICAL HISTORY: R10.10 Upper abdominal pain unspecified. EXAM MEASUREMENTS: Liver Length: 13.1 cm Gallbladder Wall: Surgically absent CBD: 0.3 cm Right Kidney: 10.0 x 4.3 x 4.2 cm Pancreas: Obscured by bowel gas Liver: the lateral left lobe of the liver is obscured . Gallbladder: Surgically absent Evidence for sonographic Gray's sign: no CBD: wnl Right Kidney: No hydronephrosis or masses seen IMPRESSION: 1. The pancreas is obscured by overlying bowel gas. 2. Cholecystectomy. 3. The liver is obscured at the lateral left lobe. A CT may be helpful for further evaluation.
== END | disposition home or self-care (01) ==
LOC: RADUSWWP 08:58
PROVIDERS: ATTEND Family Medicine
DX: Z90.49 Acquired absence of other specified parts of digestive tract (principal)
CPT/HCPCS: 76705

== ENCOUNTER → 2021-11-12 | Outpatient (CLI) | payer MEDICARE, BC ==
--- NOTE | 2021-11-14 14:44 | MM ---
Reason for exam: screening (asymptomatic). Last mammogram was performed 1 year and 1 month ago. History: Patient is postmenopausal. Family history of breast cancer in paternal aunt at age 50. Benign right mammotome panel of the right breast, January 06, 2012. Cancelled Right Mammotome of the right breast, September 09, 2011. Took hormonal contraceptives for 20 years. Took estrogen for 7 years. Physical Findings: A clinical breast exam by your physician is recommended on an annual basis and results should be correlated with mammographic findings. MG 3D Screening Mammo W/Cad Bilateral CC and MLO view(s) were taken. Prior study comparison: October 02, 2020, bilateral MG 3d screening mammo w/cad. February 28, 2019, bilateral MG 3d screening mammo w/cad. There are scattered fibroglandular densities. There is no discrete abnormality. No significant changes when compared with prior studies. ASSESSMENT: Benign, BI-RAD 2 RECOMMENDATION: Routine screening mammogram of both breasts in 1 year. Manage patient on a clinical basis. Consider ultrasound.
== END | disposition home or self-care (01) ==
LOC: RADMAMWWP 14:38
PROVIDERS: ATTEND Family Medicine
DX: Z12.31 Encounter for screening mammogram for malignant neoplasm of breast (principal); Z80.3 Family history of malignant neoplasm of breast; Z78.0 Asymptomatic menopausal state
CPT/HCPCS: 77063; 77067

== ENCOUNTER → 2022-11-10 | Outpatient (CLI) | payer MEDICARE, BC ==
--- NOTE | 2022-11-11 18:39 | MM ---
Reason for Exam: Screening (asymptomatic). Last screening mammogram was performed 12 month(s) ago. Patient History: Menarche at age 10. First Full-Term at age 20. Left ovary removed at age 49. Right ovary removed at age 49. Hysterectomy at age 49. Postmenopausal. Patient used Estrogen for 7 years. Patient used Hormonal Contraceptives for 20 years. 01/06/2012, Benign Core Biopsy on the right side. 09/09/2011, Cancelled Right Mammotome on the right side. Paternal aunt had breast cancer, age 50. Risk Values: Carmina 5 year model risk: 2.0%. NCI Lifetime model risk: 3.6%. Prior Study Comparison: 02/28/2019 Bilateral Screening Mammogram, [facility]. 10/02/2020 Bilateral Screening Mammogram, [facility]. 11/12/2021 Bilateral Screening Mammogram, [facility]. Tissue Density: There are scattered fibroglandular densities. Findings: Analyzed By CAD. Microclip upper outer quadrant right breast from prior biopsy. There is no suspicious group of microcalcifications or new suspicious mass in either breast. Overall Assessment: Negative, BI-RAD 1 Management: Screening Mammogram of both breasts in 1 year. 1. Patient should continue monthly self breast exams. 2. A clinical breast exam by your physician is recommended on an annual basis. 3. This exam should not preclude additional follow-up of suspicious palpable abnormalities. Electronically signed and approved by: Jenifer Lynn M.D. Radiologist
== END | disposition home or self-care (01) ==
LOC: RADMAMWWP 14:48
PROVIDERS: ATTEND Family Medicine
DX: Z12.31 Encounter for screening mammogram for malignant neoplasm of breast (principal); Z78.0 Asymptomatic menopausal state; Z80.3 Family history of malignant neoplasm of breast; Z90.721 Acquired absence of ovaries, unilateral
CPT/HCPCS: 77063; 77067

== ENCOUNTER → 2022-12-05 | Outpatient (CLI) | payer MEDICARE, BC ==
--- NOTE | 2022-12-05 17:26 | CT ---
EXAMINATION TYPE: CT brain wo con DATE OF EXAM: 12/05/2022 COMPARISON: 12/07/2014 HISTORY: 77-year-old female Dizziness, syncope, nausea, hx of head injury. TECHNIQUE: Examination was done in axial plane without intravenous contrast. Coronal and sagittal r econstructions performed. CT DLP: 1029.6 mGycm Automated exposure control for dose reduction was used. FINDINGS: There is no evidence of acute intracranial hemorrhage, acute ischemic changes, mass, mass-effect, or extra-axial fluid collection. There is no effacement of cerebral sulci or basal subarachnoid cister ns. There is no hydrocephalus. There is no midline shift. Rodríguez-white matter distinction is preserv ed. Mild atrophy overlying the bifrontal cerebral convexities. Old lacunar infarct left basal ganglia/sub insular white matter unchanged from 2014. Slight leftward nasal septal angulation. Prior sinonasal surgery. Residual mild mucosal thickening th roughout the ethmoid air cells. Mastoid air cells well pneumatized. Orbits and globes are intact. IMPRESSION: Mild bifrontal cerebral cortical volume loss. No acute intracranial abnormality seen. 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
== END | disposition home or self-care (01) ==
LOC: RADCTMAIN 15:13
PROVIDERS: ATTEND Family Medicine
DX: J32.2 Chronic ethmoidal sinusitis (principal); R42 Dizziness and giddiness
CPT/HCPCS: 70450

== ENCOUNTER 2023-02-19 12:21 | Day surgery (SDC) | payer MEDICARE, BC ==
[~2023-02-19 12:21] MED LIST changes: -DEXAMETHASONE SOD PHOSPHATE 10 MG/ML 1 ML VIAL IV ONE; -LIDOCAINE 1% 20 ML VIAL (10MG/ML) FOR IV START INTRADERMA PRN; -ONDANSETRON 4 MG/2 ML VIAL IVP ONE; +SODIUM CHLORIDE 0.9% 1,000 ML IV SCH; -fentaNYL (PF) 50 MCG/ML 2 ML AMP IV PRN; -metroNIDAZOLE-NS PMX 500 MG in SALINE 1 100ML.BAG IVPB ONE
[2023-02-19] MEDS ORDERED: SODIUM CHLORIDE 0.9% 500 ML 500 ML IV ONE (12:37)
[2023-02-19 12:53] VITALS: TEMP 98.9
[2023-02-19 14:46] VITALS: BP 132/78; PULSE 68; RESP 14
--- NOTE | 2023-02-19 18:38 | P.EPPROC ---
- EP Procedure Note Electrophysiology Procedure Note: Diagnosis Recurrent presyncope Twelve-lead EKG shows sinus rhythm normal NM narrow QRS q waves in the inferior leads. Width of the Q-wave greater than 40 ms in lead 3 and amplitude 5 mm Normal QT interval Tilt table test per protocol Baseline blood pressure 148/67 mmHg, Baseline heart rate 64 beats a minute Very gradual and mild decline in blood pressure. Lowest blood pressure recorded about 117/68 mmHg without any change in heart rate No symptoms noted No syncope Impression Sinus mechanism normal QT interval Very mild and very gradual decline in blood pressure during the period of tilting, completely asymptomatic
== END 2023-02-19 14:30 | disposition home or self-care (01) ==
LOC: CATHEP 12:21
PROVIDERS: ATTEND Internal Medicine Clinical Cardiac Electrophysiology
DX: R55 Syncope and collapse (principal); I08.0 Rheumatic disorders of both mitral and aortic valves; I10 Essential (primary) hypertension; E78.5 Hyperlipidemia, unspecified; Z79.899 Other long term (current) drug therapy; Z91.048 Other nonmedicinal substance allergy status; Z88.5 Allergy status to narcotic agent; Z88.8 Allergy status to other drugs, medicaments and biological substances; E78.00 Pure hypercholesterolemia, unspecified; I47.1 Supraventricular tachycardia
CPT/HCPCS: 93660

== ENCOUNTER → 2023-11-26 | Outpatient (CLI) | payer MEDICARE, BC ==
--- NOTE | 2023-11-28 16:58 | MM ---
Reason for Exam: Screening (asymptomatic). Last mammogram was performed 1 year(s) and 1 month(s) ago. Patient History: Menarche at age 10. First Full-Term at age 20. Left ovary removed at age 49. Right ovary removed at age 49. Hysterectomy at age 49. Postmenopausal. Patient used Estrogen for 7 years. Patient used Hormonal Contraceptives for 20 years. 01/06/2012, Benign Core Biopsy on the right side. 09/09/2011, Cancelled Right Mammotome on the right side. Paternal aunt had breast cancer, age 50. Risk Values: Carmina 5 year model risk: 2.0%. NCI Lifetime model risk: 3.3%. Prior Study Comparison: 10/02/2020 Bilateral Screening Mammogram, [facility]. 11/12/2021 Bilateral Screening Mammogram, [facility]. 11/10/2022 Bilateral MG 3D screening mammo w/cad, [facility]. Tissue Density: There are scattered fibroglandular densities. Findings: Analyzed By CAD. The pattern is symmetrical and stable. No significant interval changes. The core marker is within the right breast. Scattered benign punctate calcifications are present bilaterally. No suspicious groups of microcalcifications, spiculated or lobular masses, architectural distortion or other secondary signs of malignancy are mammographically apparent. Overall Assessment: Benign, BI-RAD 2 Management: Screening Mammogram of both breasts in 1 year. A negative mammogram report should not preclude additional follow up of suspicious palpable abnormalities. Patient should continue monthly self breast exam. A clinical breast exam by your physician is recommended on an annual basis and results should be correlated with mammographic findings. Electronically signed and approved by: Karl Randall D.O. Radiologis
== END | disposition home or self-care (01) ==
LOC: RADMAMWWP 14:06
PROVIDERS: ATTEND Family Medicine
DX: Z12.31 Encounter for screening mammogram for malignant neoplasm of breast (principal); Z80.3 Family history of malignant neoplasm of breast; Z78.0 Asymptomatic menopausal state
CPT/HCPCS: 77063; 77067

== ENCOUNTER → 2024-09-30 | Outpatient (CLI) | payer MEDICARE, BC ==
--- NOTE | 2024-09-30 10:49 | US ---
EXAMINATION TYPE: US abdomen complete DATE OF EXAM: 09/30/2024 COMPARISON: NONE CLINICAL INDICATION: Female, 79 years old with history of Complete R10.9 unspecified abdominal pain; LUQ ache. cholecystectomy TECHNIQUE: Grayscale and color Doppler imaging of the abdomen was performed. FINDINGS: EXAM MEASUREMENTS: Liver Length: 14.4 cm Gallbladder Wall: Surgically absent CBD: 0.4 cm Spleen: 8.5 cm Right Kidney: 9.2 x 4.0 x 4.4 cm Left Kidney: 10.8 x 5.0 x 4.0 cm TEST DESK SUPERVISOR NOTES: +Limitations due to large amount of overlying bowel gas Pancreas: Tail obscured by overlying bowel gas Liver: heterogeneous Gallbladder: Surgically absent Evidence for sonographic Gray's sign: no CBD: appears wnl Spleen: visualized portions appear wnl Right Kidney: no evidence of hydronephrosis Left Kidney: no evidence of hydronephrosis Upper IVC: wnl Abd Aorta: visualized portions appear wnl IMPRESSION: 1. Limited study due to bowel gas. Particularly the evaluation of pancreas is limited. 2. Cholecystectomy. 3. Unremarkable liver and kidneys. [facility], , 09/30/2024 10:47 AM
== END | disposition home or self-care (01) ==
LOC: RADUSWWP 09:26
PROVIDERS: ATTEND Family Medicine
DX: R10.9 Unspecified abdominal pain (principal); R14.3 Flatulence; Z90.49 Acquired absence of other specified parts of digestive tract
CPT/HCPCS: 76700